=== PATIENT | female | born 1990 | race Caucasian/White ===

== ENCOUNTER 2016-07-01 14:32 | Emergency (ER) | payer SELFPAY ==
--- NOTE | 2016-07-01 14:45 | ER Document Report ---
ED Medical Screen (RME) - General Stated Complaint: POSSIBLE RASH Time seen by provider: 14:40 Mode of Arrival: Ambulatory Information source: Patient Notes: 26-year-old female presents to ED for rash to right breast. States she had a rash on her breasts last night and now it's on her right. States that the pain goes through her right breast to her back since 11:00 this morning. States she only took Benadryl with no help. States she took 2 Advil at around 10:00 and took Benadryl at the same time. I have greeted and performed a rapid initial assessment of this patient. A comprehensive ED assessment and evaluation of the patient, analysis of test results and completion of medical decision making process will be conducted by an additional ED providers. TRAVEL OUTSIDE OF THE [place] IN LAST 30 DAYS: No - Related Data Allergies/Adverse Reactions: morphine [Morphine] Allergy (Intermediate, Verified 05/27/16 12:06) severe vomiting aspirin [Aspirin] Allergy (Mild, Verified 05/27/16 12:06) severe headaches latex [Latex] Allergy (Unknown, Verified 05/27/16 12:06) Nausea promethazine HCl [From Phenergan] Allergy (Unknown, Verified 05/27/16 12:06) Iodinated Contrast Media - Oral and [IV Dye, Iodine Containing] Allergy ( Verified 05/27/16 12:06) Shellfish * [Shellfish] Allergy (Verified 05/27/16 12:06) Past Medical History - Social History Family history: CAD, DM, Hypertension, Malignancy Pulmonary Medical History: Reports: Hx Asthma - ON ALBUTEROL, Hx Bronchitis, Hx COPD Neurological Medical History: Reports: Hx Migraine Renal/ Medical History: Reports: Hx Ovarian Cysts GI Medical History: Reports: Hx Gastroesophageal Reflux Disease, Hx Hiatal Hernia, Hx Ulcer Musculoskeltal Medical History: Reports Hx Arthritis, Reports Hx Musculoskeletal Deformity, Reports Hx Musculoskeletal Trauma Psychiatric Medical History: Reports: Hx Anxiety, Hx Depression Traumatic Medical History: Reports: Hx Fractures Past Surgical History: Reports: Hx Section - 3, Hx Hysterectomy, Hx Oral Surgery - wisdom teeth, Hx Tubal Ligation - Immunizations Immunizations up to date: Yes Hx Diphtheria, Pertussis, Tetanus Vaccination: Yes
[2016-07-01] MEDS ORDERED: HYDROXYZINE HCL INJ 50 MG/1 ML VIAL IM ONE (17:06)
--- NOTE | 2016-07-01 17:12 | ER Document Report ---
ED General - General Chief Complaint: Rash Stated Complaint: POSSIBLE RASH Time seen by provider: 17:07 Mode of Arrival: Ambulatory Notes: This is a 26-year-old female with a history of asthma that presents today with bilateral breast rash. She states that at 2200 last night she noticed a small rash beginning on the left upper outer quadrant of her left breast with slight pruritus. However this morning she has noticed the rash has spread to her right breast to the lower quadrant breast around the areola. She also complains of a small rash between the index and middle finger of right hand on the dorsal aspect. Patient denies nipple discharge or breast swelling. Denies nausea vomiting fever or chills. Denies any ill contacts. TRAVEL OUTSIDE OF THE [place] IN LAST 30 DAYS: No - Related Data Allergies/Adverse Reactions: morphine [Morphine] Allergy (Intermediate, Verified 07/01/16 14:42) severe vomiting aspirin [Aspirin] Allergy (Mild, Verified 07/01/16 14:42) severe headaches latex [Latex] Allergy (Unknown, Verified 07/01/16 14:42) Nausea promethazine HCl [From Phenergan] Allergy (Unknown, Verified 07/01/16 14:42) Iodinated Contrast Media - Oral and [IV Dye, Iodine Containing] Allergy ( Verified 07/01/16 14:42) Shellfish * [Shellfish] Allergy (Verified 07/01/16 14:42) Past Medical History - General Information source: Patient - Social History Smoking Status: Current Every Day Smoker Chew tobacco use (# tins/day): No Frequency of alcohol use: None Drug Abuse: None Family History: Arthritis, DM, Hypertension, Malignancy, Thyroid Disfunction Patient has suicidal ideation: No Patient has homicidal ideation: No Pulmonary Medical History: Reports: Hx Asthma - ON ALBUTEROL, Hx Bronchitis, Hx COPD Neurological Medical History: Reports: Hx Migraine Renal/ Medical History: Reports: Hx Ovarian Cysts. Denies: Hx Peritoneal Dialysis GI Medical History: Reports: Hx Gastroesophageal Reflux Disease, Hx Hiatal Hernia, Hx Ulcer Musculoskeltal Medical History: Reports Hx Arthritis, Reports Hx Musculoskeletal Deformity, Reports Hx Musculoskeletal Trauma Psychiatric Medical History: Reports: Hx Anxiety, Hx Depression Traumatic Medical History: Reports: Hx Fractures Past Surgical History: Reports: Hx Section - 3, Hx Hysterectomy, Hx Oral Surgery - wisdom teeth, Hx Tubal Ligation - Immunizations Immunizations up to date: Yes Hx Diphtheria, Pertussis, Tetanus Vaccination: Yes Hx Pneumococcal Vaccination: 06/08/00 Review of Systems - Review of Systems Constitutional: denies: Chills, Fever EENT: No symptoms reported Cardiovascular: No symptoms reported Respiratory: No symptoms reported Gastrointestinal: No symptoms reported Genitourinary: No symptoms reported Musculoskeletal: No symptoms reported Skin: See HPI Hematologic/Lymphatic: No symptoms reported Neurological/Psychological: No symptoms reported Physical Exam - Vital signs Vitals: Temp Pulse Resp BP Pulse Ox 98.8 F 91 16 125/71 96 07/01/16 14:42 07/01/16 14:42 07/01/16 14:42 07/01/16 14:42 07/01/16 14:42 - General General appearance: Appears well, Alert - HEENT Head: Normocephalic, Atraumatic Eyes: Normal Conjunctiva: Normal - Respiratory Respiratory status: No respiratory distress Breath sounds: Normal. No: Rales, Rhonchi, Stridor, Wheezing - Cardiovascular Rhythm: Regular Heart sounds: Normal auscultation - Abdominal Inspection: Normal Distension: No distension Bowel sounds: Normal Tenderness: Nontender - Back Back: Normal. No: Wounds - Extremities General upper extremity: Normal inspection General lower extremity: Normal inspection - Neurological Cognition: Normal. No: Confused - Psychological Associated symptoms: Normal affect, Normal mood - Skin Skin Temperature: Warm Skin Moisture: Dry Skin Color: Erythema - Right lower inner quadrant and left lower outer quadrant of right breast has diffuse erythematous macule. Few erythematous papules noted. Left upper outer quadrant of the left breast shows diffuse erythematous macule with irregular border. Few erythematous papules noted. No drainage noted. Erythematous macule between index and middle finger of right hand on dorsal aspect. Measurement approximately a half centimeter by half a centimeter. No papules noted. Examination was chaperoned by PCT. Course - Re-evaluation Re-evalutation: 07/01/16 17:48 Examination was chaperoned by PCT. Patient was given multiple opportunities to ask questions. She was advised to follow-up with primary care physician. - Vital Signs Vital signs: Temp Pulse Resp BP Pulse Ox 98.7 F 67 16 117/94 H 100 07/01/16 17:55 07/01/16 17:55 07/01/16 17:55 07/01/16 17:55 07/01/16 17:55 Discharge - Discharge Clinical Impression: Rash Condition: Good Disposition: HOME, SELF-CARE Additional Instructions: Return to the emergency department if symptoms worsen such as nausea, fever, drainage, etc. follow-up with primary care physician as soon as possible Prescriptions: Famotidine [Pepcid 20 mg Tablet] 20 mg PO BID #12 tablet Hydroxyzine HCl [Atarax 10 mg Tablet] 10 mg PO TID PRN #30 tablet PRN Reason: Prednisone [Deltasone 10 mg Tablet] 10 mg PO ASDIR PRN #21 tablet PRN Reason: Referrals: [facility] [Provider Group] - Follow up as needed
[2016-07-01 17:58] VITALS: BP 117/94
== END 2016-07-01 17:00 | disposition home or self-care (01) ==
LOC: ER 14:32
DX: R21 Rash and other nonspecific skin eruption (principal); L29.8 Other pruritus; J44.9 Chronic obstructive pulmonary disease, unspecified; J45.909 Unspecified asthma, uncomplicated; F17.200 Nicotine dependence, unspecified, uncomplicated; Z88.5 Allergy status to narcotic agent; Z88.6 Allergy status to analgesic agent; Z91.040 Latex allergy status; Z91.041 Radiographic dye allergy status; Z91.013 Allergy to seafood; Z88.8 Allergy status to other drugs, medicaments and biological substances
CPT/HCPCS: 99282; 96372; J3490

== ENCOUNTER 2016-08-23 01:15 | Emergency (ER) | payer SELFPAY ==
[2016-08-23] MEDS ORDERED: HYDROXYZINE PAMOATE 50 MG CAPSULE PO ONE (01:39)
--- NOTE | 2016-08-23 01:39 | ER Document Report ---
ED General - General Time seen by provider: 02:05 Mode of Arrival: Ambulatory Information source: Patient, Friend TRAVEL OUTSIDE OF THE [place] IN LAST 30 DAYS: No - HPI Onset: Other - see HPI note <SONIDO HASKINS - Last Filed: 08/23/16 03:29> <FABIÁNROBIN - Last Filed: 08/23/16 04:58> - General Stated Complaint: DIFFICULTY BREATHING Notes: Patient is a 26 year old female presenting to the emergency department for respiratory distress. Patient has a history of asthma and believes she is having an asthma attack. Patient was dancing when she went outside to take a smoke. Patient had some pain and felt like she couldn't breath. Patient states that her pain started in her ribs and moved up into her chest. Patient states then she could not breath. Patient states her feet felt tingling and she states she cannot feel her legs below her knees. Patient is hyperventilating in the room and complains of the pain in her ribs and the difficulty breathing. Patient 's O2 saturation is 100% during the exam. Patient states she is not because she had a hysterectomy after her 6th child was born. Patient states this occurred about 1 hour prior to arrival. Patient states she has been drinking tonight and states she had "3 shots of Surjit, and 1/2 of a mixed drink. " Patient and friends deny the chance of anyone slipping anything into her drink. (SONIDO HASKINS) - Related Data Allergies/Adverse Reactions: morphine [Morphine] Allergy (Intermediate, Verified 07/01/16 14:42) severe vomiting aspirin [Aspirin] Allergy (Mild, Verified 07/01/16 14:42) severe headaches latex [Latex] Allergy (Unknown, Verified 07/01/16 14:42) Nausea promethazine HCl [From Phenergan] Allergy (Unknown, Verified 07/01/16 14:42) Iodinated Contrast Media - Oral and [IV Dye, Iodine Containing] Allergy ( Verified 07/01/16 14:42) Shellfish * [Shellfish] Allergy (Verified 07/01/16 14:42) Past Medical History - General Information source: Patient - Social History Smoking Status: Current Every Day Smoker Family History: Arthritis, DM, Hypertension, Malignancy, Thyroid Disfunction Pulmonary Medical History: Reports: Hx Asthma - ON ALBUTEROL, Hx Bronchitis, Hx COPD Neurological Medical History: Reports: Hx Migraine Renal/ Medical History: Reports: Hx Ovarian Cysts GI Medical History: Reports: Hx Gastroesophageal Reflux Disease, Hx Hiatal Hernia, Hx Ulcer Musculoskeltal Medical History: Reports Hx Arthritis, Reports Hx Musculoskeletal Deformity, Reports Hx Musculoskeletal Trauma Psychiatric Medical History: Reports: Hx Anxiety, Hx Depression Traumatic Medical History: Reports: Hx Fractures Past Surgical History: Reports: Hx Section - 3, Hx Hysterectomy, Hx Oral Surgery - wisdom teeth, Hx Tubal Ligation - Immunizations Immunizations up to date: Yes Hx Diphtheria, Pertussis, Tetanus Vaccination: Yes Hx Pneumococcal Vaccination: 06/08/00 <SONIDO HASKINS - Last Filed: 08/23/16 03:29> Review of Systems - Review of Systems Constitutional: No symptoms reported EENT: No symptoms reported Cardiovascular: See HPI Respiratory: See HPI Gastrointestinal: See HPI Genitourinary: No symptoms reported Female Genitourinary: No symptoms reported Musculoskeletal: No symptoms reported Skin: No symptoms reported Hematologic/Lymphatic: No symptoms reported Neurological/Psychological: No symptoms reported -: Yes All other systems reviewed and negative <SONIDO HASKINS - Last Filed: 08/23/16 03:29> Physical Exam - Vital signs Interpretation: Tachycardic - during exam - General General appearance: Alert, Other - patient is hyperventilating in the room In distress: Mild - HEENT Head: Normocephalic, Atraumatic Eyes: Normal Pupils: PERRL Mucous membranes: Moist - Respiratory Respiratory status: No respiratory distress, Other - hyperventilating Chest status: Nontender Breath sounds: Normal Chest palpation: Normal - Cardiovascular Rhythm: Regular Heart sounds: Normal auscultation Murmur: No - Abdominal Inspection: Normal Distension: No distension Bowel sounds: Normal Tenderness: Nontender Organomegaly: No organomegaly - Back Back: Normal, Nontender - Extremities General upper extremity: Normal inspection, Normal ROM, Normal strength General lower extremity: Normal inspection, Normal ROM, Normal strength - Neurological Neuro grossly intact: Yes Cognition: Normal Orientation: AAOx4 Son Coma Scale Eye Opening: Spontaneous [place] Coma Scale Verbal: Oriented Son Coma Scale Motor: Obeys Commands [place] Coma Scale Total: 15 Speech: Normal - Psychological Associated symptoms: Normal affect, Normal mood - Skin Skin Temperature: Warm Skin Moisture: Dry <SONIDO HASKINS - Last Filed: 08/23/16 03:29> <ROBIN LOCKWOOD - Last Filed: 08/23/16 04:58> - Vital signs Vitals: Pulse Ox 100 08/23/16 01:24 Course <SONIDO HASKINS - Last Filed: 08/23/16 03:29> - Laboratory Result Diagrams: 08/23/16 04:00 <ROBIN LOCKWOOD - Last Filed: 08/23/16 04:58> - Re-evaluation Re-evalutation: 08/23/16 04:54 Patient presents with episode of hyperventilation. She reports she has a history of asthma and was dancing and then also started having some chest tightness and pain. She said the pain is worse in the lower rib cage and it radiates up into her chest. She reports feeling very tight breathing. On arrival she is extremely tachypneic and crying with her partner at the bedside consoling her. She has clear breath sounds bilaterally. No wheezes are auscultated. Patient appears anxious and tearful. Initiated treatment with nonrebreather not have the option to try to get patient to balance her CO2. Patient was given a nebulized treatment with minimal improvement. Patient satting 100% throughout ED visit. She is not in respiratory distress. This is an episode of hyperventilation syndrome. She repeatedly requests for pain medication. Patient is well-known to this emergency department for pain related complaints. She has multiple allergies making it difficult to choose medication for her however Tylenol should be sufficient given she is clinically stable without any emergent issue requiring intervention. (ROBIN LOCKWOOD) - Vital Signs Vital signs: Temp Pulse Resp BP Pulse Ox 98.6 F 23 H 139/80 H 100 08/23/16 01:31 08/23/16 01:31 08/23/16 01:31 08/23/16 01:31 - Laboratory Laboratory results interpreted by me: 08/23/16 04:00 Seg Neutrophils % 91.0 H Lymphocytes % 7.2 L Monocytes % 1.2 L Absolute Neutrophils 8.3 H Discharge <SONIDO HASKINS - Last Filed: 08/23/16 03:29> <ROBIN LOCKWOOD - Last Filed: 08/23/16 04:58> - Discharge Clinical Impression: Hyperventilation syndrome Chest pain Qualifiers: Chest pain type: other chest pain Qualified Code(s): R07.89 - Other chest pain ; R07.8 - Other chest pain Condition: Stable Disposition: HOME, SELF-CARE Instructions: Asthma ([facility], [facility]) Additional Instructions: Follow-up the primary physician for ongoing evaluation and health needs. You can use Tylenol for chest discomfort. Use your albuterol inhaler as needed for wheezing and/or shortness of breath. Please review information below regarding hyperventilation. Return to emergency department for fevers, vomiting so not to keep down fluids, or other worsening or concerning symptoms. Chest Wall Pain Your chest pain has been diagnosed as coming from the chest wall. This is often caused by straining the muscles or joints in the chest during physical activity, direct trauma, coughing, or vigorous vomiting. Persons with arthritis are especially prone to this type of pain, due to inflammation of the cartilage joints near the breast bone. Occasionally, no cause can be found. Rest from strenuous physical activity. This kind of chest pain is usually made worse by movement of the chest. Depending on the symptoms, we may prescribe medicine for pain, muscle relaxation, and antiinflammatory effects. If the pain is new, and seems to be due to muscle strain, cold packs can help. Otherwise, apply gentle warmth to the painful area for 15 minutes every hour or two. You should contact the doctor immediately if things change. Further evaluation is needed if you develop a fever or cough, if the nature of the pain changes, or if you become short of breath. Hyperventilation You have had an episode of hyperventilation. The symptoms occur because rapid breathing changes the body's chemical balance. Hyperventilation causes dizziness, numbness (particularly of the hands and face), chest pain, muscle spasms, and anxiety. Once an episode begins, it's extremely difficult to control the "need" to breathe rapidly. Hyperventilation may be provoked by drug effects, nausea, or illness, but is often due to anxiety. If no specific cause for the problem was found, treatment for anxiety may be necessary. Once the chemical changes have occurred, the hyperventilation is likely to recur. If you feel the symptoms again, rebreathe your air with a paper bag for several minutes. Sometimes hyperventilation is a symptom of an underlying metabolic or lung problem. If new symptoms develop (such as productive cough, fever, or chest pain), or if you are unable to get relief with rebreathing your exhaled air, call the physician. Asthma Asthma is a condition where there is episodic tightness in the bronchial tubes. Allergies, infections, and polluted or cold air may be contributing factors. Emergency treatment of a severe asthma attack may include adrenaline shots , or bronchodilator aerosol. You may feel lightheaded, have a decreased exercise tolerance and a rapid pulse for an hour or two. Rest and get plenty of fluids. Home treatment of asthma requires bronchodilator drugs. These can be administered by injection, inhalation, or by mouth. Antibiotics and corticosteroids may be required for some patients. You should avoid chemical fumes, dusts, pollens, and exercising in very cold or dry air. If you smoke, stop!! If you develop a fever, increased wheezing, chest pain, or severe shortness of breath, you should contact the doctor immediately Scribe Documentation - Scribe Written by Greg:: Sonido Haskins 08/23/16 2:15 acting as scribe for :: [place] <SONIDO HASKINS - Last Filed: 08/23/16 03:29>
[2016-08-23] MEDS ORDERED: DEXAMETHASONE SOD PHOS INJ 10 MG/1 ML VIAL IM ONE (01:41)
[2016-08-23] MEDS ORDERED: IPRATROPIUM/ALBUTEROL 0.5-2.5 MG/3 ML AMPUL NEB ONE (02:00)
[2016-08-23] MEDS ORDERED: METOCLOPRAMIDE HCL INJ/PF 10 MG/2 ML SDV IV ONE (02:28)
[2016-08-23 04:10] LABS: ABSOLUTE LYMPHOCYTES (AUTO) 0.7 10^3/uL (0.5-4.7); ABSOLUTE MONOCYTES (AUTO) 0.1 10^3/uL (0.1-1.4); ABSOLUTE NEUT (AUTO) 8.3 10^3/uL (1.7-8.2); BASOPHILS % (AUTO) 0.5 % (0-2); EOSINOPHILS % (AUTO) 0.1 % (0-6); HEMATOCRIT 39.2 % (36.0-47.0); HEMOGLOBIN 13.7 g/dL (12.0-15.5); HGB HCT DIFFERENCE 1.9; LYMPHOCYTES % (AUTO) 7.2 % (13-45); MEAN CORPUSCULAR HEMOGLOBIN 30.8 pg (27.0-33.4); MEAN CORPUSCULAR HGB CONC 34.9 g/dL (32.0-36.0); MEAN CORPUSCULAR VOLUME 88 fl (80-97); MONOCYTES % (AUTO) 1.2 % (3-13); RED BLOOD COUNT 4.45 10^6/uL (3.72-5.28); RED CELL DISTRIBUTION WIDTH 13.2 % (11.5-14.0); WHITE BLOOD COUNT 9.1 10^3/uL (4.0-10.5)
[2016-08-23] MEDS ORDERED: DIPHENHYDRAMINE HCL 50 MG/ML VIAL IV ONE (04:17)
[2016-08-23 06:16] VITALS: BP 118/82
--- NOTE | 2016-08-23 16:11 | EKG REPORT ---
SEVERITY:- ABNORMAL ECG - SINUS TACHYCARDIA PROBABLE LEFT ATRIAL ABNORMALITY BORDERLINE RIGHT AXIS DEVIATION BORDERLINE T ABNORMALITIES, INFERIOR LEADS : Confirmed by: Sarah Morrison MD 23-Aug-2016 16:10:58
== END 2016-08-23 06:27 | disposition home or self-care (01) ==
LOC: ER 01:15
DX: F45.8 Other somatoform disorders (principal); R07.89 Other chest pain; F17.200 Nicotine dependence, unspecified, uncomplicated
CPT/HCPCS: 93005; 94640; 99284; 96372; 96374; 96375; 36415; 85025; 71010; 93010; J1200; J2765; J1100; J7620

== ENCOUNTER 2016-12-16 22:13 | Emergency (ER) | payer SELFPAY ==
[2016-12-16] MEDS ORDERED: NALOXONE HCL INJ 2 MG/2 ML DISP.SYRIN ONE (22:27)
[2016-12-16 22:31] LABS: ABSOLUTE BASOPHILS # (AUTO) 0.1 10^3/uL (0.0-0.2); ABSOLUTE EOSINOPHILS # (AUTO) 0.1 10^3/uL (0.0-0.6); ABSOLUTE LYMPHOCYTES (AUTO) 3.1 10^3/uL (0.5-4.7); ABSOLUTE MONOCYTES (AUTO) 0.7 10^3/uL (0.1-1.4); BASOPHILS % (AUTO) 0.9 % (0-2); EOSINOPHILS % (AUTO) 1.6 % (0-6); HEMATOCRIT 41.3 % (36.0-47.0); HEMOGLOBIN 13.7 g/dL (12.0-15.5); HGB HCT DIFFERENCE -0.2; LYMPHOCYTES % (AUTO) 38.7 % (13-45); MEAN CORPUSCULAR HEMOGLOBIN 29.8 pg (27.0-33.4); MEAN CORPUSCULAR HGB CONC 33.3 g/dL (32.0-36.0); MEAN CORPUSCULAR VOLUME 90 fl (80-97); MONOCYTES % (AUTO) 8.9 % (3-13); RED BLOOD COUNT 4.62 10^6/uL (3.72-5.28); RED CELL DISTRIBUTION WIDTH 13.4 % (11.5-14.0); SEGMENTED NEUTROPHILS % (AUTO) 49.9 % (42-78); WHITE BLOOD COUNT 8.1 10^3/uL (4.0-10.5)
[2016-12-16] MEDS ORDERED: NALOXONE HCL INJ 2 MG/2 ML DISP.SYRIN IV ONE ×2 (22:31)
[2016-12-16] MEDS ORDERED: NORMAL SALINE 500 ML with NALOXONE HCL 2 MG IV PRN ×2 (22:44)
[2016-12-16] MEDS ORDERED: NORMAL SALINE 1000 ML 1,000 ML IV ONE (22:45)
[2016-12-16 22:49] LABS: ALANINE AMINOTRANSFERASE 28 U/L (9-52); ALBUMIN 4.5 g/dL (3.5-5.0); ALCOHOL 158 mg/dL (NONE DETECTED); ALKALINE PHOSPHATASE 49 U/L (38-126); ANION GAP 13 (5-19); ASPARTATE AMINO TRANSFERASE 21 U/L (14-36); BILIRUBIN,DIRECT 0.2 mg/dL (0.0-0.4); BILIRUBIN,TOTAL 0.6 mg/dL (0.2-1.3); BLOOD UREA NITROGEN 5 mg/dL (7-20); CALCIUM 9.2 mg/dL (8.4-10.2); CARBON DIOXIDE 23 mmol/L (22-30); CHLORIDE 109 mmol/L (98-107); CREATINE KINASE 59 U/L (30-135); CREATININE RESULT 0.63 mg/dL (0.52-1.25); GLUCOSE 104 mg/dL (75-110); POTASSIUM 3.5 mmol/L (3.6-5.0); SODIUM 144.7 mmol/L (137-145); TOTAL PROTEIN 7.5 g/dL (6.3-8.2)
--- NOTE | 2016-12-16 22:50 | RADIOLOGY REPORT (SQ) ---
EXAM DESCRIPTION: CHEST SINGLE VIEW COMPLETED DATE/TIME: 12/16/2016 10:37 pm REASON FOR STUDY: hypoxia COMPARISON: August 2016 EXAM PARAMETERS: NUMBER OF VIEWS: One view. TECHNIQUE: Single frontal radiographic view of the chest acquired. RADIATION DOSE: NA LIMITATIONS: None. FINDINGS: LUNGS AND PLEURA: No opacities, masses or pneumothorax. No pleural effusion. MEDIASTINUM AND HILAR STRUCTURES: No masses. Contour normal. HEART AND VASCULAR STRUCTURES: Heart normal in size. Normal vasculature. BONES: No acute findings. HARDWARE: None in the chest. OTHER: No other significant finding. IMPRESSION: NO ACUTE RADIOGRAPHIC FINDING IN THE CHEST. TECHNICAL DOCUMENTATION: JOB ID: [id number]
[2016-12-17 00:12] LABS: URINE BARBITURATES SCREEN NEGATIVE; URINE METHADONE SCREEN NEGATIVE; URINE OPIATES LOW NEGATIVE; URINE PHENCYCLIDINE SCREEN NEGATIVE
[2016-12-17 00:38] LABS: ADD ON TESTING BLD IN LAB ACKNOWLEDGE
--- NOTE | 2016-12-17 00:50 | ER Document Report ---
ED Substance Abuse / Acc. OD - General Chief Complaint: Unresponsive Stated Complaint: UNRESPONSIVE Time Seen by Provider: 12/16/16 22:20 Notes: The patient is a 26-year-old female, past medical history asthma, presents after she was found unresponsive by her friend. The friend said that she was drinking, but does not think that she uses any drugs. Patient has been to the ER multiple times for pain related visits. Patient is taking shallow respirations, but will not respond to painful stimulation on arrival to the ED. TRAVEL OUTSIDE OF THE [place] IN LAST 30 DAYS: No - Related Data Allergies/Adverse Reactions: morphine [Morphine] Allergy (Intermediate, Verified 07/01/16 14:42) severe vomiting aspirin [Aspirin] Allergy (Mild, Verified 07/01/16 14:42) severe headaches latex [Latex] Allergy (Unknown, Verified 07/01/16 14:42) Nausea promethazine HCl [From Phenergan] Allergy (Unknown, Verified 07/01/16 14:42) Iodinated Contrast- Oral and IV Dye [IV Dye, Iodine Containing] Allergy ( Verified 07/01/16 14:42) Shellfish * [Shellfish] Allergy (Verified 07/01/16 14:42) Past Medical History - General Information source: Friend Cannot obtain history due to: Altered mental status - Social History Smoking Status: Unknown if Ever Smoked Family History: Arthritis, DM, Hypertension, Malignancy, Thyroid Disfunction Pulmonary Medical History: Reports: Hx Asthma - ON ALBUTEROL, Hx Bronchitis, Hx COPD Neurological Medical History: Reports: Hx Migraine Renal/ Medical History: Reports: Hx Ovarian Cysts. Denies: Hx Peritoneal Dialysis GI Medical History: Reports: Hx Gastroesophageal Reflux Disease, Hx Hiatal Hernia, Hx Ulcer Musculoskeltal Medical History: Reports Hx Arthritis, Reports Hx Musculoskeletal Deformity, Reports Hx Musculoskeletal Trauma Psychiatric Medical History: Reports: Hx Anxiety, Hx Depression Traumatic Medical History: Reports: Hx Fractures Past Surgical History: Reports: Hx Section - 3, Hx Hysterectomy, Hx Oral Surgery - wisdom teeth, Hx Tubal Ligation - Immunizations Immunizations up to date: Yes Hx Diphtheria, Pertussis, Tetanus Vaccination: Yes Hx Pneumococcal Vaccination: 06/08/00 Review of Systems - Review of Systems -: Yes ROS unobtainable due to patient's medical condition Physical Exam - Vital signs Vitals: Resp BP Pulse Ox 23 H 130/97 H 100 12/16/16 22:40 07/11/17 22:40 12/16/16 22:40 - Notes Notes: PHYSICAL EXAMINATION: GENERAL: Unresponsive to painful stimulation HEAD: Atraumatic, normocephalic. EYES: Pupils 3mm to 1mm reactive, sclera anicteric, conjunctiva are normal. ENT: nares patent, oropharynx clear without exudates. Moist mucous membranes. NECK: Normal range of motion, supple without lymphadenopathy LUNGS: Shallow respirations. Breath sounds clear to auscultation bilaterally and equal. No wheezes rales or rhonchi. HEART: Regular rate and rhythm without murmurs ABDOMEN: Soft, nontender, normoactive bowel sounds. No guarding, no rebound. No masses appreciated. EXTREMITIES: Normal range of motion, no pitting or edema. No cyanosis. NEUROLOGICAL: Moves all 4 extremities. SKIN: Warm, Dry, normal turgor, no rashes or lesions noted. Course - Re-evaluation Re-evalutation: On arrival to the emergency room, patient was protecting her airway, although she had shallow respirations. She was provided with 2 mg of Narcan and she woke up. She became sleepy and another 2 mg of Narcan were provided. She was started on a Narcan drip. Her UDS is negative for opioids or methadone, but she may be taking synthetic opioids such as fentanyl. Her alcohol level is 160. 12/17/16 02:01 Pt's Narcan drip discontinued for the past 2.5 hours because she is wide awake. Has not had any other episodes of somnolence. She said that she only drank alcohol tonight and she repeatedly said that she did not take any narcotics or benzos today. Looking through [place] [facility], she does not have any recent scripts. Patient said that she has not slept for the past week because she has an annoying cough from her asthma. She is requesting a nebulizer machine and Nebules because it helps her in the past. She will follow-up with her primary care physician for further evaluation and treatment. Patient has her friend and sister in the emergency room and will take her home. Given strict return precautions and they understand. 12/17/16 02:15 - Vital Signs Vital signs: Temp Pulse Resp BP Pulse Ox 29 H 140/101 H 93 12/17/16 00:55 12/17/16 00:55 12/17/16 00:55 - Laboratory Result Diagrams: 12/16/16 22:18 12/16/16 22:18 Laboratory results interpreted by me: 12/16/16 12/16/16 22:18 22:18 Potassium 3.5 L Chloride 109 H BUN 5 L Salicylates < 1.0 L Acetaminophen < 10 L Discharge - Discharge Clinical Impression: Alcohol intoxication Qualifiers: Complication of substance-induced condition: uncomplicated Qualified Code(s): F10.920 - Alcohol use, unspecified with intoxication, uncomplicated Altered mental status Qualifiers: Altered mental status type: unspecified Qualified Code(s): R41.82 - Altered mental status, unspecified Condition: Stable Disposition: HOME, SELF-CARE Additional Instructions: ACUTE ALCOHOL INTOXICATION and ALCOHOL ABUSE: Your evaluation revealed very high levels of alcohol. You can from drinking a large amount of alcohol rapidly! Further, there's the risk of falls , traffic accidents, and fights. A high portion (about 50 percent) of the serious injuries seen in hospital emergency rooms are caused by alcohol. Alcohol overdosage is usually due to an underlying emotional or psychiatric problem. You may benefit from counselling. If "binge" drinking is an ongoing problem for you, or if you drink ANY AMOUNT of alcohol EVERY day, you most likely have a tendency to alcoholism. You should avoid alcohol totally. We can refer you for treatment. Persons with alcohol problems are often also prone to other addictions -- you should discuss any use of medications or drugs with the doctor. You should be watched at home for the next several hours by someone who has not been drinking. Get extra fluids for the next 24 hours. Call the doctor if there is repeated vomiting, increasing headache, decreasing level of alertness, or any other worsening. FOR THE OBSERVER: Observe the patient for the next 24 hours and call or go to the hospital if any of the following are noted: prolonged or repeated vomiting, difficulty in arousing, convulsions (seizures or fits), fever, persistent cough, breathing that is too slow or too rapid, or confused or bizarre behavior. If a counselling visit has been arranged, make sure the patient attends. Call the physician or poison control if you have questions. FOLLOW-UP CARE: If you have been referred to a physician for follow-up care, call the physician s office for an appointment as you were instructed or within the next two days. If you experience worsening or a significant change in your symptoms, notify the physician immediately or return to the Emergency Department at any time for re-evaluation. Prescriptions: Albuterol Sulfate [Albuterol Sulfate 2.5mg/3 mL] 1 vial IH Q4 PRN #30 vial PRN Reason: Nebulizer [Nebulizer Machine] 1 each MC ASDIR PRN #1 kit PRN Reason: Forms: Smoking Cessation Education Referrals: [facility] [Outside] - Follow up as needed
[2016-12-17 00:57] VITALS: BP 140/101
--- NOTE | 2016-12-17 08:18 | EKG REPORT ---
SEVERITY:- OTHERWISE NORMAL ECG - SINUS RHYTHM BORDERLINE RIGHT AXIS DEVIATION : Confirmed by: Constantino Nicholas MD 17-Dec-2016 08:17:42
== END 2016-12-17 03:40 | disposition home or self-care (01) ==
LOC: ER 22:13
DX: F10.920 Alcohol use, unspecified with intoxication, uncomplicated (principal); R41.82 Altered mental status, unspecified; J45.909 Unspecified asthma, uncomplicated; Z90.710 Acquired absence of both cervix and uterus; Z88.6 Allergy status to analgesic agent; Z91.040 Latex allergy status; Z91.013 Allergy to seafood
CPT/HCPCS: 93005; 96376; 99285; 96365; 96366; 36415; 82962; 80307 ×4; 82550; 85025; 81025; 80053; 84484; 71010; 93010; J2310; J7030; J7040

== ENCOUNTER 2017-03-12 01:29 | Emergency (ER) | payer OTHER ==
[2017-03-12] MEDS ORDERED: CYCLOBENZAPRINE HCL 10 MG TABLET PO ONE (01:52)
[2017-03-12] MEDS ORDERED: PREDNISONE 20 MG TABLET PO ONE (01:52)
[2017-03-12] MEDS ORDERED: BENZONATATE 100 MG CAPSULE PO ONE (01:53)
--- NOTE | 2017-03-12 01:54 | ER Document Report ---
ED General - General Chief Complaint: Nonproductive Cough Stated Complaint: COUGH, DIFFICULTY BREATHING Time Seen by Provider: 03/12/17 01:44 Notes: Patient is a 26-year-old female comes emergency department for chief complaint of cough for about 3 days, cough is mainly nonproductive and painful, she states that she intermittently wheezes, she has a history of asthma, she continues to smoke. She uses an albuterol inhaler at home. She states she thinks she was having fevers but she is not sure. She also states that when she coughs she gets a sharp pain in her right side. She denies any symptoms otherwise. Past medical history of partial hysterectomy. TRAVEL OUTSIDE OF THE [place] IN LAST 30 DAYS: No - Related Data Allergies/Adverse Reactions: morphine [Morphine] Allergy (Intermediate, Verified 03/12/17 01:31) severe vomiting aspirin [Aspirin] Allergy (Mild, Verified 03/12/17 01:31) severe headaches latex [Latex] Allergy (Unknown, Verified 03/12/17 01:31) Nausea promethazine HCl [From Phenergan] Allergy (Unknown, Verified 03/12/17 01:31) Iodinated Contrast- Oral and IV Dye [IV Dye, Iodine Containing] Allergy ( Verified 03/12/17 01:31) Shellfish * [Shellfish] Allergy (Verified 03/12/17 01:31) Home Medications: Current Home Medications Albuterol Sulfate [Proair HFA] 1 - 2 puff IH Q4 PRN 03/12/17 [History] Past Medical History - General Information source: Patient - Social History Smoking Status: Never Smoker Smoking Education Provided: Yes - <3 min Frequency of alcohol use: None Drug Abuse: None Lives with: Family Family History: Arthritis, DM, Hypertension, Malignancy, Thyroid Disfunction Pulmonary Medical History: Reports: Hx Asthma - ON ALBUTEROL, Hx Bronchitis, Hx COPD Neurological Medical History: Reports: Hx Migraine Renal/ Medical History: Reports: Hx Ovarian Cysts. Denies: Hx Peritoneal Dialysis GI Medical History: Reports: Hx Gastroesophageal Reflux Disease, Hx Hiatal Hernia, Hx Ulcer Musculoskeltal Medical History: Reports Hx Arthritis, Reports Hx Musculoskeletal Deformity, Reports Hx Musculoskeletal Trauma Psychiatric Medical History: Reports: Hx Anxiety, Hx Depression Traumatic Medical History: Reports: Hx Fractures Past Surgical History: Reports: Hx Section - 3, Hx Hysterectomy, Hx Oral Surgery - wisdom teeth, Hx Tubal Ligation - Immunizations Immunizations up to date: Yes Hx Diphtheria, Pertussis, Tetanus Vaccination: Yes Hx Pneumococcal Vaccination: 06/08/00 Review of Systems - Review of Systems Constitutional: No symptoms reported EENT: No symptoms reported Cardiovascular: No symptoms reported Respiratory: See HPI Gastrointestinal: No symptoms reported Genitourinary: No symptoms reported Female Genitourinary: No symptoms reported Musculoskeletal: See HPI Skin: No symptoms reported Hematologic/Lymphatic: No symptoms reported Neurological/Psychological: No symptoms reported Physical Exam - Vital signs Vitals: Temp Pulse Resp BP Pulse Ox 98.1 F 100 17 144/86 H 100 03/12/17 01:34 03/12/17 01:34 03/12/17 01:34 03/12/17 01:34 03/12/17 01:34 Interpretation: Normal - General General appearance: Appears well, Alert In distress: None - HEENT Head: Normocephalic, Atraumatic Eyes: Normal Pupils: PERRL - Respiratory Respiratory status: No respiratory distress. No: Respiratory distress, Labored , Tachypnea Chest status: Nontender Breath sounds: Normal, Nonproductive cough - occasional. No: Decreased air movement, Productive cough, Wheezing Chest palpation: Normal - Cardiovascular Rhythm: Regular. No: Tachycardia Heart sounds: Normal auscultation, S1 appreciated, S2 appreciated Murmur: No - Abdominal Inspection: Normal Distension: No distension Bowel sounds: Normal Tenderness: Nontender. No: Tender, Guarding Organomegaly: No organomegaly - Back Back: Tender - There is mild tenderness over the right lumbar paraspinal muscles extending towards the size of the buttock, negative straight leg raise, normal distal neurovascular exam, normal strength, normal back exam otherwise.. No: Vertebra tenderness - Extremities General upper extremity: Normal inspection, Nontender, Normal color, Normal ROM , Normal temperature General lower extremity: Normal inspection, Nontender, Normal color, Normal ROM , Normal temperature, Normal weight bearing. No: Emmanuel's sign - Neurological Neuro grossly intact: Yes Cognition: Normal Orientation: AAOx4 [place] Coma Scale Eye Opening: Spontaneous Son Coma Scale Verbal: Oriented [place] Coma Scale Motor: Obeys Commands Son Coma Scale Total: 15 Speech: Normal Motor strength normal: LUE, RUE, LLE, RLE Sensory: Normal - Psychological Associated symptoms: Normal affect, Normal mood - Skin Skin Temperature: Warm Skin Moisture: Dry Skin Color: Normal Course - Re-evaluation Re-evalutation: On examination patient has clear lungs, no tachypnea, no hypoxia, occasional nonproductive cough. Patient has tenderness over the right lower paraspinal lumbar area extending around to the side, no signs of trauma, full range of motion of all extremities, no concerning deficits. Soft abdomen. Chest x-ray is unremarkable. Treating patient for cough, bronchitis, discussed smoking cessation, treating with Flexeril for her lower back. Discussed follow- up, discussed return precautions. Patient states understanding and agreement. - Vital Signs Vital signs: Temp Pulse Resp BP Pulse Ox 98.6 F 72 18 137/73 H 98 03/12/17 03:19 03/12/17 03:19 03/12/17 03:19 03/12/17 03:19 03/12/17 03:19 Discharge - Discharge Clinical Impression: Cough Lower back pain Qualifiers: Chronicity: acute Back pain laterality: right Sciatica presence: without sciatica Qualified Code(s): M54.5 - Low back pain Condition: Stable Disposition: HOME, SELF-CARE Additional Instructions: Your chest x-ray is normal. Your symptoms and examination are consistent with bronchitis, take the prednisone as prescribed, stop smoking, use your inhaler as needed. Use tessalon for cough if needed. Use the muscle relaxer along her right side and lower back, apply heat to the area. Follow-up with primary care. Return to the emergency department for any concerning or worsening symptoms including difficulty breathing. Prescriptions: Benzonatate [Tessalon [place] 100 mg Capsule] 100 mg PO Q8HP PRN #20 cap PRN Reason: Cyclobenzaprine HCl [Flexeril 5 mg Tablet] 1 - 2 tab PO TID PRN #15 tablet PRN Reason: Prednisone [Deltasone 10 mg Tablet] 10 mg PO ASDIR PRN #21 tablet PRN Reason: Forms: Smoking Cessation Education
--- NOTE | 2017-03-12 03:00 | RADIOLOGY REPORT (SQ) ---
EXAM DESCRIPTION: CHEST PA/LAT CLINICAL HISTORY: 26 years, Female, cough, shortness of breath, fevers COMPARISON: None. NUMBER OF VIEWS: 2 TECHNIQUE: Routine PA and lateral chest radiograph technique. LIMITATIONS: None. FINDINGS: Cardiac size and pulmonary vasculature are normal. Lungs are clear. No pleural effusions or pneumothorax. Bones are normal. IMPRESSION: Normal chest radiographs. 2011 [employer]- All Rights Reserved
[2017-03-12 03:24] VITALS: BP 137/73
== END 2017-03-12 03:24 | disposition home or self-care (01) ==
LOC: ER 01:29
DX: R05 Cough (principal); R06.00 Dyspnea, unspecified; Z88.6 Allergy status to analgesic agent; Z91.040 Latex allergy status; Z91.013 Allergy to seafood; Z90.710 Acquired absence of both cervix and uterus
CPT/HCPCS: 99283; 71020; J7512

== ENCOUNTER 2017-05-26 21:22 | Emergency (ER) | payer OTHER ==
[2017-05-26] MEDS ORDERED: DIAZEPAM INJ 10 MG/2 ML DISP.SYRIN IM ONE (22:55)
--- NOTE | 2017-05-26 22:57 | ER Document Report ---
HPI - HPI Patient complains to provider of: neck pain Pain Level: 5 Context: Patient is a 27 year old female that comes to the emergency department for chief complaint of pain to the right side of her neck. She states that it started a few days ago mild, she states that it has become significantly worse, she states now she cannot turn her head side to side, she states she moves it hurts with a sharp pain, she states it is keeping her awake. She denies impact injury, she denies fever or chills, she denies headache. She denies focal numbness or weakness. She smokes, she states she has been coughing a lot from bronchitis which she was treated from and has improved but is still has not completely resolved. LMP within the past month. - REPRODUCTIVE Reproductive: DENIES: : - DERM Skin Color: Normal, [place] Past Medical History - Social History Smoking Status: Current Every Day Smoker Frequency of alcohol use: Rare Drug Abuse: None Family History: Arthritis, DM, Hypertension, Malignancy, Thyroid Disfunction Patient has suicidal ideation: No Patient has homicidal ideation: No - Past Medical History Cardiac Medical History: Denies: Hx Atrial Fibrillation Pulmonary Medical History: Reports: Hx Asthma - ON ALBUTEROL, Hx Bronchitis, Hx COPD Neurological Medical History: Reports: Hx Migraine Renal/ Medical History: Reports: Hx Ovarian Cysts. Denies: Hx Peritoneal Dialysis GI Medical History: Reports: Hx Gastroesophageal Reflux Disease, Hx Hiatal Hernia, Hx Ulcer Musculoskeltal Medical History: Reports Hx Arthritis, Reports Hx Musculoskeletal Deformity, Reports Hx Musculoskeletal Trauma Psychiatric Medical History: Reports: Hx Anxiety, Hx Depression Traumatic Medical History: Reports: Hx Fractures Past Surgical History: Reports: Hx Section - 3, Hx Hysterectomy, Hx Oral Surgery - wisdom teeth, Hx Orthopedic Surgery - L shoulder, Hx Tubal Ligation - Immunizations Immunizations up to date: Yes Hx Diphtheria, Pertussis, Tetanus Vaccination: Yes Hx Pneumococcal Vaccination: 06/08/00 Vertical Provider Document - CONSTITUTIONAL General Appearance: WD/WN, Mild Distress - Patient moves stiffly and appears uncomfortable - INFECTION CONTROL TRAVEL OUTSIDE OF THE [place] IN LAST 30 DAYS: No - HEENT HEENT: Atraumatic, Normocephalic - NECK Neck: Other - No midline tenderness of the cervical spine, normal extension and flexion, very painful lateral range of motion, palpable muscle spasm and marked pain over the right paracervical and trapezius muscles. Slight tilt to the right. Normal strength and range of motion of upper and lower extremities, normal distal neurovascular exam. - RESPIRATORY Respiratory: Breath Sounds Normal, No Respiratory Distress O2 Sat by Pulse Oximetry: 99 - CARDIOVASCULAR Cardiovascular: Regular Rate, Regular Rhythm - GI/ABDOMEN Gastrointestinal: Abdomen Soft, Abdomen Non-Tender - BACK Back: Normal Inspection - MUSCULOSKELETAL/EXTREMETIES Musculoskeletal/Extremeties: MAEW, FROM, Non-Tender - NEURO Level of Consciousness: Awake, Alert, Appropriate Motor/Sensory: No Motor Deficit, No Sensory Deficit - DERM Integumentary: Warm, Dry, No Rash Course - Re-evaluation Re-evalutation: Patient moves her neck very stiffly, she is very tender right paracervical and trapezius muscles and clear muscle spasm on examination. She has a tiny tilt suggesting early torticollis. No nuchal rigidity, no fever, no headache, no evidence of spinal cord abnormality, no midline tenderness. Patient will be treated with diazepam for muscle spasm with torticollis, discussed treatment of this, follow-up, return precautions. Patient states understanding and agreement. - Vital Signs Vital signs: Temp Pulse Resp BP Pulse Ox 98.7 F 96 18 130/89 H 99 05/26/17 21:29 05/26/17 21:29 05/26/17 21:29 05/26/17 21:29 05/26/17 21:29 Discharge - Discharge Clinical Impression: Neck pain, Muscle spasm Condition: Stable Disposition: HOME, SELF-CARE Additional Instructions: Your examination is consistent with a muscular spasm of the trapezius muscle and developing torticollis. Apply heat to the area, take medications as prescribed, avoid lifting/twisting until symptoms resolve. Follow-up with primary care. Return to the emergency department for any concerning symptoms including fever, severe headache, or any other concerning symptoms. Prescriptions: Diazepam [Valium 5 mg Tablet] 5 mg PO TID #12 tablet
[2017-05-26 23:09] VITALS: BP 121/96
== END 2017-05-26 23:08 | disposition home or self-care (01) ==
LOC: ER 21:22
DX: M54.2 Cervicalgia (principal); M62.838 Other muscle spasm; F17.200 Nicotine dependence, unspecified, uncomplicated
CPT/HCPCS: 99283; 96372; J3360

== ENCOUNTER 2017-06-29 23:29 | Emergency (ER) | payer OTHER ==
[2017-06-30 00:19] VITALS: BP 111/73
== END 2017-06-30 01:35 | disposition left against medical advice (07) ==
LOC: ER 23:29
DX: Z53.21 Procedure and treatment not carried out due to patient leaving prior to being seen by health care provider (principal)

== ENCOUNTER 2017-08-13 11:26 | Emergency (ER) | payer OTHER ==
[2017-08-13 11:42] VITALS: BP 119/82
[2017-08-13] MEDS ORDERED: FENTANYL CITRATE INJ/PF 100 MCG/2 ML AMPUL IV ONE (11:59)
[2017-08-13] MEDS ORDERED: NORMAL SALINE 1000 ML 1,000 ML IV ONE (11:59)
[2017-08-13] MEDS ORDERED: ONDANSETRON HCL INJ/PF 4 MG/2 ML SDV IV ONE (12:00)
--- NOTE | 2017-08-13 12:01 | ER Document Report ---
ED Medical Screen (RME) - General Chief Complaint: Flank Pain Stated Complaint: FLANK PAIN Time Seen by Provider: 08/13/17 11:57 Notes: RME DISCLOSURE I have seen this patient as part of a Rapid Medical Evaluation and, if applicable, placed any initially appropriate orders. The patient will be seen and fully evaluated, including a full history and physical exam, by a provider ( in Main ED or Fast Track) when a room becomes available. 27-year-old female here with complaints of right flank and right lower quadrant abdominal pain that started 5 hours ago constant with associated nausea and vomiting but no fevers. She has not been able to urinate but feels like she has urine in her bladder however states that she is not able to get it out. She feels like "there might be a stone stuck in my urethra". She reports having a stone several years ago however, per chart review, CT scan at that time did not show any calculi. TRAVEL OUTSIDE OF THE [place] IN LAST 30 DAYS: No - Related Data Allergies/Adverse Reactions: morphine [Morphine] Allergy (Intermediate, Verified 08/13/17 11:29) severe vomiting aspirin [Aspirin] Allergy (Mild, Verified 08/13/17 11:29) severe headaches latex [Latex] Allergy (Unknown, Verified 08/13/17 11:29) Nausea promethazine HCl [From Phenergan] Allergy (Unknown, Verified 08/13/17 11:29) Iodinated Contrast- Oral and IV Dye [IV Dye, Iodine Containing] Allergy ( Verified 08/13/17 11:29) Shellfish * [Shellfish] Allergy (Verified 08/13/17 11:29) Past Medical History - Social History Chew tobacco use (# tins/day): No Frequency of alcohol use: None Drug Abuse: None Family history: CAD, DM, Hypertension, Malignancy - Past Medical History Cardiac Medical History: Denies: Hx Atrial Fibrillation Pulmonary Medical History: Reports: Hx Asthma - ON ALBUTEROL, Hx Bronchitis, Hx COPD Neurological Medical History: Reports: Hx Migraine Renal/ Medical History: Reports: Hx Ovarian Cysts. Denies: Hx Peritoneal Dialysis GI Medical History: Reports: Hx Gastroesophageal Reflux Disease, Hx Hiatal Hernia, Hx Ulcer Musculoskeltal Medical History: Reports Hx Arthritis, Reports Hx Musculoskeletal Deformity, Reports Hx Musculoskeletal Trauma Psychiatric Medical History: Reports: Hx Anxiety, Hx Depression Traumatic Medical History: Reports: Hx Fractures Past Surgical History: Reports: Hx Section - 3, Hx Hysterectomy, Hx Oral Surgery - wisdom teeth, Hx Orthopedic Surgery - L shoulder, Hx Tubal Ligation - Immunizations Immunizations up to date: Yes Hx Diphtheria, Pertussis, Tetanus Vaccination: Yes Physical Exam - Vital signs Vitals: Temp Pulse Resp BP Pulse Ox 98.9 F 85 16 119/82 98 08/13/17 11:40 08/13/17 11:40 08/13/17 11:40 08/13/17 11:40 08/13/17 11:40 Course - Vital Signs Vital signs: Temp Pulse Resp BP Pulse Ox 98.9 F 85 16 119/82 98 08/13/17 11:40 08/13/17 11:40 08/13/17 11:40 08/13/17 11:40 08/13/17 11:40
--- NOTE | 2017-08-13 12:27 | ER Document Report ---
ED General - General Chief Complaint: Flank Pain Stated Complaint: FLANK PAIN Time Seen by Provider: 08/13/17 11:57 TRAVEL OUTSIDE OF THE [place] IN LAST 30 DAYS: No - HPI Patient complains to provider of: Right flank pain Notes: Sharp right-sided flank pain with radiation to her right groin reminiscent of her kidney stones in the past. 10/10 sharp in nature nothing made it better or worse. Started approximately 4 hours prior to arrival here in the department. Denies nausea vomiting diarrhea fever chills or any other symptoms - Related Data Allergies/Adverse Reactions: morphine [Morphine] Allergy (Intermediate, Verified 08/13/17 11:29) severe vomiting aspirin [Aspirin] Allergy (Mild, Verified 08/13/17 11:29) severe headaches latex [Latex] Allergy (Unknown, Verified 08/13/17 11:29) Nausea promethazine HCl [From Phenergan] Allergy (Unknown, Verified 08/13/17 11:29) Iodinated Contrast- Oral and IV Dye [IV Dye, Iodine Containing] Allergy ( Verified 08/13/17 11:29) Shellfish * [Shellfish] Allergy (Verified 08/13/17 11:29) Past Medical History - Social History Smoking Status: Current Every Day Smoker Chew tobacco use (# tins/day): No Frequency of alcohol use: None Drug Abuse: None Family History: Arthritis, DM, Hypertension, Malignancy, Thyroid Disfunction Patient has suicidal ideation: No Patient has homicidal ideation: No - Past Medical History Cardiac Medical History: Denies: Hx Atrial Fibrillation Pulmonary Medical History: Reports: Hx Asthma - ON ALBUTEROL, Hx Bronchitis, Hx COPD Neurological Medical History: Reports: Hx Migraine Renal/ Medical History: Reports: Hx Ovarian Cysts. Denies: Hx Peritoneal Dialysis GI Medical History: Reports: Hx Gastroesophageal Reflux Disease, Hx Hiatal Hernia, Hx Ulcer Musculoskeltal Medical History: Reports Hx Arthritis, Reports Hx Musculoskeletal Deformity, Reports Hx Musculoskeletal Trauma Psychiatric Medical History: Reports: Hx Anxiety, Hx Depression Traumatic Medical History: Reports: Hx Fractures Past Surgical History: Reports: Hx Section - 3, Hx Hysterectomy, Hx Oral Surgery - wisdom teeth, Hx Orthopedic Surgery - L shoulder, Hx Tubal Ligation - Immunizations Immunizations up to date: Yes Hx Diphtheria, Pertussis, Tetanus Vaccination: Yes Hx Pneumococcal Vaccination: 06/08/00 Review of Systems - Review of Systems Notes: REVIEW OF SYSTEMS: CONSTITUTIONAL: -fevers, -chills EENT: -eye pain, -difficulty swallowing, -nasal congestion CARDIOVASCULAR: -chest pain, -syncope. RESPIRATORY: -cough, -SOB GASTROINTESTINAL: -abdominal pain, -nausea, -vomiting, -diarrhea GENITOURINARY: -dysuria, -hematuria MUSCULOSKELETAL: Positive back pain SKIN: -rash or skin lesions. HEMATOLOGIC: -easy bruising or bleeding. LYMPHATIC: -swollen, enlarged glands. NEUROLOGICAL: -altered mental status or loss of consciousness, -headache, - neurologic symptoms PSYCHIATRIC: -anxiety, -depression. ALL OTHER SYSTEMS REVIEWED AND NEGATIVE. Physical Exam - Vital signs Vitals: Temp Pulse Resp BP Pulse Ox 98.9 F 85 16 119/82 98 08/13/17 11:40 08/13/17 11:40 08/13/17 11:40 08/13/17 11:40 08/13/17 11:40 - Notes Notes: PHYSICAL EXAMINATION: GENERAL: Well-appearing, well-nourished and in no acute distress. HEAD: Atraumatic, normocephalic. EYES: Pupils equal round and reactive to light, extraocular movements intact, sclera anicteric, conjunctiva are normal. ENT: nares patent, oropharynx clear without exudates. Moist mucous membranes. NECK: Normal range of motion, supple without lymphadenopathy LUNGS: Breath sounds clear to auscultation bilaterally and equal. No wheezes rales or rhonchi. HEART: Regular rate and rhythm without murmurs ABDOMEN: Soft, nontender, normoactive bowel sounds. No guarding, no rebound. No masses appreciated. EXTREMITIES: Normal range of motion, no pitting or edema. No cyanosis. NEUROLOGICAL: Cranial nerves grossly intact. Normal speech, normal gait. Normal sensory and motor exams. PSYCH: Normal mood, normal affect. SKIN: Warm, Dry, normal turgor, no rashes or lesions noted. Course - Re-evaluation Re-evalutation: 08/13/17 14:10 Normal vital signs, stable within limits. Reassuring physical exam no abdominal findings negative CVA tenderness. Patient's urine shows no signs of infection, negative leukocytosis CAT scan negative for acute abdominal or pelvic abnormalities. Patient's pain well controlled with ketorolac, will discharge heart follow-up PCP. - Vital Signs Vital signs: Temp Pulse Resp BP Pulse Ox 98.9 F 85 16 119/82 98 08/13/17 11:40 08/13/17 11:40 08/13/17 11:40 08/13/17 11:40 08/13/17 11:40 - Laboratory Result Diagrams: 08/13/17 12:58 08/13/17 12:58 Laboratory results interpreted by me: 08/13/17 12:58 Calcium 10.3 H Discharge - Discharge Condition: Good Disposition: HOME, SELF-CARE Instructions: Abdominal Pain ([facility]) Additional Instructions: See your PCP Prescriptions: Tramadol HCl 50 mg PO TID #20 tablet Referrals: DEVONTE ACOSTA, [employer] [Primary Care Provider] - Follow up as needed
[2017-08-13 13:11] LABS: ABSOLUTE BASOPHILS # (AUTO) 0.1 10^3/uL (0.0-0.2); ABSOLUTE EOSINOPHILS # (AUTO) 0.2 10^3/uL (0.0-0.6); ABSOLUTE LYMPHOCYTES (AUTO) 2.2 10^3/uL (0.5-4.7); ABSOLUTE MONOCYTES (AUTO) 0.5 10^3/uL (0.1-1.4); ABSOLUTE NEUT (AUTO) 2.6 10^3/uL (1.7-8.2); BASOPHILS % (AUTO) 1.3 % (0-2); EOSINOPHILS % (AUTO) 3.9 % (0-6); HEMATOCRIT 42.1 % (36.0-47.0); HEMOGLOBIN 14.3 g/dL (12.0-15.5); LYMPHOCYTES % (AUTO) 39.6 % (13-45); MEAN CORPUSCULAR HEMOGLOBIN 30.3 pg (27.0-33.4); MEAN CORPUSCULAR HGB CONC 33.9 g/dL (32.0-36.0); MEAN CORPUSCULAR VOLUME 89 fl (80-97); MONOCYTES % (AUTO) 8.3 % (3-13); PLATELET COUNT 323 10^3/uL (150-450); RED BLOOD COUNT 4.72 10^6/uL (3.72-5.28); SEGMENTED NEUTROPHILS % (AUTO) 46.9 % (42-78); TOTAL CELLS COUNTED % (AUTO) 100 %; WHITE BLOOD COUNT 5.5 10^3/uL (4.0-10.5)
[2017-08-13 13:17] LABS: APPEARANCE,URINE SLIGHTLY-CLOUDY; BILIRUBIN,URINE NEGATIVE (NEGATIVE); COLOR,URINE STRAW; GLUCOSE, URINE NEGATIVE (NEGATIVE); KETONES,URINE NEGATIVE (NEGATIVE); LEUKOCYTE ESTERASE,URINE NEGATIVE (NEGATIVE); NITRITE,URINE NEGATIVE (NEGATIVE); PROTEIN,URINE NEGATIVE (NEGATIVE); URINE SPECIFIC GRAVITY 1.003; UROBILINOGEN,URINE NEGATIVE mg/dL (<2.0)
[2017-08-13 13:31] LABS: ANION GAP 9 (5-19); BLOOD UREA NITROGEN 8 mg/dL (7-20); CALCIUM 10.3 mg/dL (8.4-10.2); CARBON DIOXIDE 26 mmol/L (22-30); CHLORIDE 107 mmol/L (98-107); GLUCOSE 86 mg/dL (75-110); POTASSIUM 4.5 mmol/L (3.6-5.0); SODIUM 142.3 mmol/L (137-145)
--- NOTE | 2017-08-13 13:38 | RADIOLOGY REPORT (SQ) ---
EXAM DESCRIPTION: CT LTD RENAL STONE PROTOCOL ON COMPLETED DATE/TIME: 08/13/2017 1:11 pm REASON FOR STUDY: R flank and RLQ pain; eval stone COMPARISON: None. TECHNIQUE: CT scan of the abdomen and pelvis performed without intravenous or oral contrast. Images reviewed with lung, soft tissue, and bone windows. Reconstructed coronal and sagittal MPR images revi ewed. All images stored on PACS. All CT scanners at this facility use dose modulation, iterative reconstruction, and/or weight based d osing when appropriate to reduce radiation dose to as low as reasonably achievable (ALARA). [facility]: Dose Right [facility]: CareDose [facility]: Dose Right [facility]: Teradose 4D [facility]: [employer] RADIATION DOSE: CT Rad equipment meets quality standard of care and radiation dose reduction techniq ues were employed. CTDIvol: 4.9 mGy. DLP: 249 mGy-cm.mGy. LIMITATIONS: None. FINDINGS: LOWER CHEST: No significant findings. No nodules or infiltrates. NON-CONTRASTED LIVER, SPLEEN, ADRENALS: Evaluation limited by lack of IV contrast. No identified sign ificant masses. PANCREAS: No masses. No peripancreatic inflammatory changes. GALLBLADDER: No identified stones by CT criteria. No inflammatory changes to suggest cholecystitis. RIGHT KIDNEY AND URETER: No suspicious masses. Assessment limited by lack of IV contrast. No signif icant calcifications. No hydronephrosis or hydroureter. LEFT KIDNEY AND URETER: No suspicious masses. Assessment limited by lack of IV contrast. No signifi cant calcifications. No hydronephrosis or hydroureter. AORTA AND RETROPERITONEUM: No aneurysm. No retroperitoneal masses or adenopathy. BOWEL AND PERITONEAL CAVITY: No obvious masses or inflammatory changes. No free fluid. APPENDIX: Normal. PELVIS, BLADDER, AND ABDOMINAL WALL:No abnormal masses. No free fluid. Bladder normal. BONES: No significant findings. OTHER: No other significant finding. IMPRESSION: NO SIGNIFICANT OR ACUTE PROCESS IN THE ABDOMEN OR PELVIS. COMMENT: Quality ID # [id number]: Final reports with documentation of one or more dose reduction techniques (e.g., Automated exposure control, adjustment of the mA and/or kV according to patient size, use of iterative reconstruction technique) TECHNICAL DOCUMENTATION: JOB ID: [id number] 0000 [employer]- All Rights Reserved Reading location - IP/workstation name: [email or web address]
== END 2017-08-13 14:50 | disposition home or self-care (01) ==
LOC: ER 11:26
DX: R10.9 Unspecified abdominal pain (principal); F17.200 Nicotine dependence, unspecified, uncomplicated; J44.9 Chronic obstructive pulmonary disease, unspecified; Z87.442 Personal history of urinary calculi; Z87.19 Personal history of other diseases of the digestive system; Z90.710 Acquired absence of both cervix and uterus; Z88.5 Allergy status to narcotic agent; Z88.6 Allergy status to analgesic agent; Z91.040 Latex allergy status; Z91.013 Allergy to seafood; Z91.041 Radiographic dye allergy status
CPT/HCPCS: 99284; 96361; 96374; 96375; 36415; 85025; 81025; 80048; 81001; 76380; J3010; J2405; J7030

== ENCOUNTER 2017-10-09 00:35 | Emergency (ER) | payer OTHER ==
[2017-10-09] MEDS ORDERED: DIPHENHYDRAMINE HCL 50 MG/ML VIAL IV ONE (01:07)
[2017-10-09] MEDS ORDERED: METOCLOPRAMIDE HCL INJ/PF 10 MG/2 ML SDV IV ONE (01:08)
[2017-10-09] MEDS ORDERED: KETOROLAC TROMETHAMINE INJ/PF 30 MG/1 ML SDV IV ONE (01:08)
[2017-10-09] MEDS ORDERED: NORMAL SALINE 1000 ML 1,000 ML IV ONE (01:08)
--- NOTE | 2017-10-09 01:12 | ER Document Report ---
ED General - General Chief Complaint: Headache Stated Complaint: HEADACHE Time Seen by Provider: 10/09/17 01:03 Notes: Patient is a 27-year-old female with a history of migraine headaches who presents with complaint of a headache that she cannot get resolved with medications at home. Patient's has a history of migraines. She says started out like a typical migraine this morning. Is gradually worsened throughout the day. She says it has not responded to her home therapy and therefore she is come to ER. She has feels like a throbbing type pain in her head. She has had some nausea. She denies any focal weakness or numbness into extremities. She has some mild photophobia. She said mainly loud noises make the headache worse. She used her Relpax at home as well as took ibuprofen. Patient says that aspirin makes her headache worse. Other NSAIDs does work okay. She is allergic to Phenergan. She is unsure if she has had Reglan in the past. She denies recent fevers or infections. No trauma to her head. The only other complaint is on exam she has some pain into her left pinky finger upon squeezing the hands. Patient says that she has had pain issues up the ulnar aspect of the left hand and pain over the fifth metacarpal that she is had now for over a week. She denies any trauma or injuries to it. No redness or swelling. TRAVEL OUTSIDE OF THE [place] IN LAST 30 DAYS: No - Related Data Allergies/Adverse Reactions: morphine [Morphine] Allergy (Intermediate, Verified 08/13/17 11:29) severe vomiting aspirin [Aspirin] Allergy (Mild, Verified 08/13/17 11:29) severe headaches latex [Latex] Allergy (Unknown, Verified 08/13/17 11:29) Nausea promethazine HCl [From Phenergan] Allergy (Unknown, Verified 08/13/17 11:29) Iodinated Contrast- Oral and IV Dye [IV Dye, Iodine Containing] Allergy ( Verified 08/13/17 11:29) Shellfish * [Shellfish] Allergy (Verified 08/13/17 11:29) Past Medical History - Social History Smoking Status: Unknown if Ever Smoked Frequency of alcohol use: None Drug Abuse: None Family History: Arthritis, DM, Hypertension, Malignancy, Thyroid Disfunction - Past Medical History Cardiac Medical History: Denies: Hx Atrial Fibrillation Pulmonary Medical History: Reports: Hx Asthma - ON ALBUTEROL, Hx Bronchitis, Hx COPD Neurological Medical History: Reports: Hx Migraine Renal/ Medical History: Reports: Hx Ovarian Cysts. Denies: Hx Peritoneal Dialysis GI Medical History: Reports: Hx Gastroesophageal Reflux Disease, Hx Hiatal Hernia, Hx Ulcer Musculoskeltal Medical History: Reports Hx Arthritis, Reports Hx Musculoskeletal Deformity, Reports Hx Musculoskeletal Trauma Psychiatric Medical History: Reports: Hx Anxiety, Hx Depression Traumatic Medical History: Reports: Hx Fractures Past Surgical History: Reports: Hx Section - 3, Hx Hysterectomy, Hx Oral Surgery - wisdom teeth, Hx Orthopedic Surgery - L shoulder, Hx Tubal Ligation - Immunizations Immunizations up to date: Yes Hx Diphtheria, Pertussis, Tetanus Vaccination: Yes Hx Pneumococcal Vaccination: 06/08/00 Review of Systems - Review of Systems Notes: My Normal Review Basic REVIEW OF SYSTEMS: CONSTITUTIONAL : Denies fever, chills, or sweats. Denies recent illness. EENT: Denies eye, ear, throat, or mouth pain or symptoms. Denies nasal or sinus congestion. RESPIRATORY: Denies cough, cold, or chest congestion. Denies shortness of breath, difficulty breathing, or wheezing. GASTROINTESTINAL: Denies abdominal pain. Denies nausea, vomiting, or diarrhea. Denies constipation. Last BM: MUSCULOSKELETAL: Pain in left hand. SKIN: Denies rash or skin lesions. NEUROLOGICAL: Denies altered mental status or loss of consciousness. Has a headache. Denies weakness or paralysis or loss of use of either side. Denies problems with gait or speech. Denies sensory or motor loss. ALL OTHER SYSTEMS REVIEWED AND NEGATIVE. Physical Exam - Vital signs Vitals: Temp Pulse Resp BP Pulse Ox 97.9 F 88 18 127/97 H 100 10/09/17 00:36 10/09/17 00:36 10/09/17 00:36 10/09/17 00:36 10/09/17 00:36 - Notes Notes: General Appearance: Well nourished, alert, cooperative, no acute distress, moderate obvious discomfort. Vitals: reviewed, See vital signs table. Head: no swelling or tenderness to the head Eyes: PERRL, EOMI, Conjuctiva clear Mouth: No decreasd moisture Throat: No tonsillar inflammation, No airway obstruction, No lymphadenopathy Neck: Supple, no neck tenderness, No thyromegaly Lungs: No wheezing, No rales, No rhonci, No accessory muscle use, good air exchange bilaterally. Heart: Normal rate, Regular rythm, No murmur, no rub Abdomen: Normal BS, soft, No rigidity, No abdominal tenderness, No guarding, no rebound, no abdominal masses, no organomegaly Extremities: strength 5/5 in all extremities, good pulses in all extremities, no pain to palpation over left fifth metacarpal. There is no redness or swelling of the area. No bruising. No deformity. Skin: warm, dry, appropriate color, no rash Neuro: speech clear, oriented x 3, normal affect, responds appropriately to questions. Cranial nerves II through XII are intact. Distal sensation intact. Patient moves all extremities without difficulty. Course - Re-evaluation Re-evalutation: 10/09/17 03:18 Patient's headache is improving. She says she just feels little bit loopy from the Benadryl but otherwise feels well. 10/09/17 04:26 Since headache is completely relieved. She looks and feels well. I feel she is safe to be discharged home. Encouraged her follow-up closely with her primary care doctor. I did talked about her Relpax. She said it was not working. She also has not been taking until several hours after the onset of her headache. I informed her that this medication is designed to work at the initial onset of headache. She is now understanding of this and said she would take this at initial onset headache. We will prescribe her Reglan informed her that if her headache does not resolve with Robaxin she can take the Reglan in conjunction with dose of Benadryl and hopefully this will help her headache as a did here. Patient encouraged to return to ER if she has worsening headache, fevers, or feels unwell. Patient's headache is consistent with her typical migraines. Is not consistent with subarachnoid hemorrhage and that is gradual in onset and not sudden or maximal in onset. Patient encouraged to return to ER immediately if she has severe worsening headache, vomiting, or feels unwell. Dictation of this chart was performed using voice recognition software; therefore, there may be some unintended grammatical errors. 10/09/17 05:39 - Vital Signs Vital signs: Temp Pulse Resp BP Pulse Ox 97.9 F 88 18 105/72 98 10/09/17 00:36 10/09/17 00:36 10/09/17 00:36 10/09/17 05:00 10/09/17 05:01 Discharge - Discharge Clinical Impression: Headache Qualifiers: Headache type: unspecified Headache chronicity pattern: acute headache Intractability: not intractable Qualified Code(s): R51 - Headache Condition: Good Disposition: HOME, SELF-CARE Additional Instructions: HEADACHE: The physician does not feel that the headache you are experiencing has a serious underlying cause. Most headaches are due to emotional stress, with resultant muscle tension (tension headache). Occasionally, headaches are secondary to changes in the blood vessels of the scalp (vascular headache and migraine headache). Sometimes, a headache is the first symptom of another developing illness, such as a viral infection. You have no evidence of stroke, bleeding, meningitis, or other serious cause of your headache. The treatment of headaches varies with the severity and cause of the pain. Not all headaches need pain shots. In fact, there is evidence that using narcotics for headaches may make them worse in the long run. The physician will determine the therapy that's in your best interest. If you develop a fever, if the headache is different from any you've previously experienced, or if the headache progressively worsens, then call your physician at once or go to the emergency room. REGLAN (METOCLOPRAMIDE): Reglan has been prescribed. This medicine affects the stomach and intestines. It can be used to treat nausea and vomiting, to prevent reflux of stomach acid up into the esophagus, or to increase the contractions of the stomach and intestines. It is often prescribed for esophagitis, and for paralysis of the stomach in diabetics. Reglan can cause either mild restlessness or drowsiness. You should contact the doctor at once if you become extremely restless, anxious, or cannot sleep, or if you develop uncontrollable motions of the lips, tongue, or jaw. Do not take alcohol with this medicine. Do not drive or operate machinery until you have been taking this medicine long enough to know how it affects you. Call the doctor if you develop abdominal pains, lightheadedness, black stool, or blood in the stool or vomitus. FOLLOW-UP CARE: If you have been referred to a physician for follow-up care, call the physician s office for an appointment as you were instructed or within the next two days. If you experience worsening or a significant change in your symptoms, notify the physician immediately or return to the Emergency Department at any time for re-evaluation. Please return to the ER immediately if you develop worsening headaches, fevers, vomiting, or feel unwell. Please take your Relpax at the first sign of a migraine. If the Relpax does not work you can take a dose of the Reglan in conjunction of 5omg of Benadryl. Do not drive after taking the Benadryl as it will make you sleepy. Follow up with your doctor in 2-3 days. Prescriptions: Metoclopramide HCl [Reglan 10 mg Tablet] 1 tab PO ASDIR PRN #25 tablet PRN Reason:
[2017-10-09 05:06] VITALS: BP 105/72
== END 2017-10-09 05:18 | disposition home or self-care (01) ==
LOC: ER 00:35
DX: G43.909 Migraine, unspecified, not intractable, without status migrainosus (principal); R11.0 Nausea; H53.149 Visual discomfort, unspecified; M79.645 Pain in left finger(s); J44.9 Chronic obstructive pulmonary disease, unspecified; Z88.8 Allergy status to other drugs, medicaments and biological substances; Z88.5 Allergy status to narcotic agent; Z88.6 Allergy status to analgesic agent; Z91.041 Radiographic dye allergy status; Z91.013 Allergy to seafood
CPT/HCPCS: 99283; 96361; 96374; 96375; J1200; J1885; J2765; J7030

== ENCOUNTER 2017-11-17 13:13 | Emergency (ER) | payer OTHER ==
[2017-11-17 13:23] VITALS: BP 126/85
--- NOTE | 2017-11-17 13:52 | ER Document Report ---
HPI - HPI Pain Level: 4 Notes: Patient is a 24-year-old female who presents to the ED complaining of nasal congestion/discharge, dry nonproductive cough, fever, body ache 4 days. Patient states that she is still eating and drinking without difficulties, but does have a decreased p.o. intake. She is still urinating normally having normal bowel movements. Patient has been using some [id number] meds for symptoms. She denies any significant past medical history including cardiopulmonary history and immunocompromised conditions. Patient denies any IV drug use. Denies any current headache, neck pain, sore throat, chest pain, palpitations, syncope, shortness of breath, wheeze, dyspnea, abdominal pain, nausea/vomiting/diarrhea, urinary retention, dysuria, hematuria, or rash. - ROS Systems Reviewed and Negative: Yes All other systems reviewed and negative - NEURO Neurology: DENIES: Weakness - body aches - RESPIRATORY Respiratory: REPORTS: Coughing - REPRODUCTIVE Reproductive: DENIES: : Past Medical History - Social History Smoking Status: Current Every Day Smoker Chew tobacco use (# tins/day): No Frequency of alcohol use: Rare Drug Abuse: None Family History: Arthritis, DM, Hypertension, Malignancy, Thyroid Disfunction Patient has suicidal ideation: No Patient has homicidal ideation: No - Past Medical History Cardiac Medical History: Denies: Hx Atrial Fibrillation Pulmonary Medical History: Reports: Hx Asthma - ON ALBUTEROL, Hx Bronchitis, Hx COPD Neurological Medical History: Reports: Hx Migraine Renal/ Medical History: Reports: Hx Ovarian Cysts. Denies: Hx Peritoneal Dialysis GI Medical History: Reports: Hx Gastroesophageal Reflux Disease, Hx Hiatal Hernia, Hx Ulcer Musculoskeltal Medical History: Reports Hx Arthritis, Reports Hx Musculoskeletal Deformity, Reports Hx Musculoskeletal Trauma Psychiatric Medical History: Reports: Hx Anxiety, Hx Depression Traumatic Medical History: Reports: Hx Fractures Past Surgical History: Reports: Hx Section - 3, Hx Hysterectomy, Hx Oral Surgery - wisdom teeth, Hx Orthopedic Surgery - L shoulder, Hx Tubal Ligation - Immunizations Immunizations up to date: Yes Hx Diphtheria, Pertussis, Tetanus Vaccination: Yes Hx Pneumococcal Vaccination: 06/08/00 Vertical Provider Document - CONSTITUTIONAL Agree With Documented VS: No - HR 98 during exam Notes: PHYSICAL EXAMINATION: GENERAL: Well-appearing, well-nourished and in no acute distress. A&Ox4. Answers questions appropriately. Moves comfortably w/o notable distress HEAD: Atraumatic, normocephalic. EYES: Pupils equal round and reactive to light, extraocular movements intact, sclera anicteric, conjunctiva are normal. ENT: EAC clear b/l. TM's intact b/l without erythema, fluid, or perforation. Nares patent and with clear discharge. oropharynx no erythema without exudates. No tonsilar hypertrophy without erythema or exudate. No palatine shift. Uvula midline. No tongue protrusion. No drooling, hoarseness, or airway compromise. Moist mucous membranes. No sinus tenderness. NECK: Normal range of motion, supple without lymphadenopathy. No rigidity/ meningismus. LUNGS: Breath sounds clear to auscultation bilaterally and equal. No wheezes rales or rhonchi. No retractions HEART: Regular rate and rhythm without murmurs, rubs, gallops. ABDOMEN: Soft, nontender, nondistended abdomen. No guarding, no rebound. No masses appreciated. Normal bowel sounds present. No CVA tenderness bilaterally. No hepatosplenomegaly. NEUROLOGICAL: Normal speech, normal gait. Normal sensory, motor exams PSYCH: Normal mood, normal affect. SKIN: Warm, Dry, normal turgor, no rashes or lesions noted. - INFECTION CONTROL TRAVEL OUTSIDE OF THE [place] IN LAST 30 DAYS: No Course - Re-evaluation Re-evalutation: 11/17/17 13:50 Patient is an afebrile, well-hydrated, 27-year-old female who presents to the ED with acute URI, suspect viral. Vitals are stable. PE is otherwise unremarkable. No labs or imaging warranted at this time based on H&P. Patient has no significant cardiopulmonary or immunocompromised medical conditions. Patient's lungs are clear to auscultation bilaterally without tachycardia, hypoxia, or tachypnea. Patient is tolerating p.o. without any difficulties. Pt declined toradol/decadron. Low suspicion for any meningitis, sepsis, peritonsillar/pharyngeal abscess, respiratory compromise, severe dehydration, or other emergent systemic condition at this time. Patient is aware this condition can change from initial presentation and she needs to monitor symptoms closely. Steroid taper Rx. Conservative measures otherwise for symptoms. Recheck with your PCM in 3-5 days. Return to the ED with any worsening/concerning symptoms otherwise as reviewed in discharge. Patient is in agreement. - Vital Signs Vital signs: Temp Pulse Resp BP Pulse Ox 99.2 F 115 H 16 126/85 H 99 11/17/17 13:21 11/17/17 13:21 11/17/17 13:21 11/17/17 13:21 11/17/17 13:21 Discharge - Discharge Clinical Impression: Acute URI Condition: Stable Disposition: HOME, SELF-CARE Instructions: Upper Respiratory Illness ([facility]) Additional Instructions: Maintain adequate fluid intake Take meds as directed tylenol/ibuprofen as needed over the counter cold medication as needed for symptoms Humidified air may help Wash your hands regularly Wear a mask when coughing F/u: with your PCM in 3-5 days for a recheck Return to the ED with any fever, worsening pain, chest pain, palpitations, syncope, worsening JOE, neck pain/stiffness, shortness of breath, wheezing, drooling, trouble swallowing/breathing, abdominal pain, n/v/d, rash, or worsening/concerning symptoms otherwise. Prescriptions: Benzonatate [Tessalon Perle 100 mg Capsule] 100 mg PO Q8HP PRN #15 cap PRN Reason: Prednisone 20 mg PO ASDIR #18 tablet Forms: Elevated Blood Pressure, Smoking Cessation Education Referrals: [facility] [Provider Group] - Follow up as needed [facility] [Provider Group] - Follow up as needed
== END 2017-11-17 14:07 | disposition home or self-care (01) ==
LOC: ER 13:13
DX: J06.9 Acute upper respiratory infection, unspecified (principal); R09.81 Nasal congestion; R50.9 Fever, unspecified; M79.1 Myalgia; F17.200 Nicotine dependence, unspecified, uncomplicated; Z90.710 Acquired absence of both cervix and uterus
CPT/HCPCS: 99283

== ENCOUNTER 2017-12-23 00:41 | Emergency (ER) | payer OTHER ==
--- NOTE | 2017-12-23 01:38 | ER Document Report ---
HPI - HPI Pain Level: 4 Notes: Patient is a 27-year-old female no significant past medical history who presents to the ED complaining of left knee pain status post twist injury prior to arrival. Patient states that she was dancing at her job a few hours ago when she stepped into an uneven surface on the floor and twisted her knee. Patient states that she had immediate pain and swelling noted. Pain does not radiate. Patient states that she has trouble with flexion at her knee because of the pain. Denies any surgical history to the knee. Patient states that she did take 2 Advil prior to arrival. Denies any headache, fever, neck pain, URI, sore throat, chest pain, palpitations, syncope, cough, shortness of breath, wheeze, dyspnea, abdominal pain, nausea/vomiting/diarrhea, urinary retention, dysuria, hematuria, back pain, loss of control of bowel or bladder, numbness/ tingling, saddle anesthesia, muscle paralysis/weakness, or rash. - ROS Systems Reviewed and Negative: Yes All other systems reviewed and negative - CONSTITUTIONAL Constitutional: DENIES: Fever, Chills - EENT EENT: DENIES: Sore Throat, Ear Pain, Eye problems - NEURO Neurology: DENIES: Headache, Weakness, Vision blurred, Dizzinesss / Vertigo - CARDIOVASCULAR Cardiovascular: DENIES: Chest pain - RESPIRATORY Respiratory: DENIES: Trouble Breathing, Coughing - GASTROINTESTINAL Gastrointestinal: DENIES: Abdominal Pain, Black / Bloody Stools - URINARY Urinary: DENIES: Dysuria, Urgency, Frequency - REPRODUCTIVE Reproductive: DENIES: : - MUSCULOSKELETAL Musculoskeletal: REPORTS: Extremity pain - knee Past Medical History - Social History Smoking Status: Unknown if Ever Smoked Family History: Arthritis, DM, Hypertension, Malignancy, Thyroid Disfunction Patient has suicidal ideation: No Patient has homicidal ideation: No - Past Medical History Cardiac Medical History: Denies: Hx Atrial Fibrillation Pulmonary Medical History: Reports: Hx Asthma - ON ALBUTEROL, Hx Bronchitis, Hx COPD Neurological Medical History: Reports: Hx Migraine Renal/ Medical History: Reports: Hx Ovarian Cysts. Denies: Hx Peritoneal Dialysis GI Medical History: Reports: Hx Gastroesophageal Reflux Disease, Hx Hiatal Hernia, Hx Ulcer Musculoskeletal Medical History: Reports Hx Arthritis, Reports Hx Musculoskeletal Deformity, Reports Hx Musculoskeletal Trauma Psychiatric Medical History: Reports: Hx Anxiety, Hx Depression Traumatic Medical History: Reports: Hx Fractures Past Surgical History: Reports: Hx Section - 3, Hx Hysterectomy, Hx Oral Surgery - wisdom teeth, Hx Orthopedic Surgery - L shoulder, Hx Tubal Ligation - Immunizations Immunizations up to date: Yes Hx Diphtheria, Pertussis, Tetanus Vaccination: Yes Hx Pneumococcal Vaccination: 06/08/00 Vertical Provider Document - CONSTITUTIONAL Agree With Documented VS: Yes Notes: PHYSICAL EXAMINATION: GENERAL: Well-appearing, well-nourished and in no acute distress. LUNGS: Breath sounds clear to auscultation bilaterally and equal. No wheezes rales or rhonchi. HEART: Regular rate and rhythm without murmurs, rubs, gallops. Musculoskeletal: Lt knee: + mild swelling noted w/o obvious ecchymosis, effusion, or deformity. LROM to passive/active and flexion. + medial joint line tenderness and anterior knee tenderness to palpation. Strength 4+/5 due to pain. N/V intact distal. Unable to adequately assess ligaments and cartilage due to patient resistance. Patellar grind negative. No calf tenderness. Extremities: No cyanosis, clubbing, or edema b/l. Peripheral pulses 2+. Capillary refill less than 3 seconds. Emmanuel neg b/l. NEUROLOGICAL: Normal speech, limping gait. Normal sensory, motor exams PSYCH: Normal mood, normal affect. SKIN: Warm, Dry, normal turgor, no rashes or lesions noted. - INFECTION CONTROL TRAVEL OUTSIDE OF THE [place] IN LAST 30 DAYS: No Course - Re-evaluation Re-evalutation: 12/23/17 02:05 Patient is an afebrile, well-hydrated, 27-year-old female who presents to the ED with left knee pain which I suspect to be a sprain versus strain. Vitals are acceptable without any significant tachycardia, tachypnea, or hypoxia. PE is otherwise unremarkable for any neurovascular compromise, obvious tendon/ ligament rupture, obvious fracture/dislocation, septic joint. X-ray is negative. Knee immobilizer and crutches provided. Patient declined any Tylenol. Ice given. Patient is nontoxic-appearing. Conservative measures otherwise for symptoms. Recheck with your PCM in 3-5 days. Call ortho tomr to schedule an appointment for further eval and management. Return to the ED with any worsening/concerning symptoms otherwise as reviewed in discharge. Patient is in agreement. - Vital Signs Vital signs: Temp Pulse Resp BP Pulse Ox 98.6 F 88 15 117/88 H 100 12/23/17 01:14 12/23/17 01:14 12/23/17 01:14 12/23/17 01:14 12/23/17 01:14 Discharge - Discharge Clinical Impression: Left knee pain Qualifiers: Chronicity: acute Qualified Code(s): M25.562 - Pain in left knee Condition: Stable Disposition: HOME, SELF-CARE Instructions: Use of Crutches ([facility]), Ice & Elevation ([facility]), Knee Immobilizing Splint ([facility]), Sprained Knee ([facility]) Additional Instructions: Rest, Ice, Compression, Elevation Use crutches/splint as directed Tylenol/ibuprofen as needed Light stretches daily Strength exercises as able Moist heat and massage may help F/u with your PCP in 3-5 days for a recheck Call orthopedics tomorrow to schedule an appointment for further evaluation and management Return to the ED with any worsening symptoms and/or development of fever, headache, chest pain, palpitations, syncope, shortness of breath, trouble breathing, abdominal pain, n/v/d, muscle weakness/paralysis, numbness/tingling, swelling, redness, or other worsening symptoms that are concerning to you. Prescriptions: Naproxen 500 mg PO BID PRN #30 tablet PRN Reason: Forms: Elevated Blood Pressure, Return to Work, Parent Work Note Referrals: [facility] [Provider Group] - Follow up in 3-5 days
--- NOTE | 2017-12-23 01:56 | RADIOLOGY REPORT (SQ) ---
EXAM DESCRIPTION: XR KNEE 4 OR MORE VIEWS COMPLETED DATE/TME: 12/23/2017 01:32 CLINICAL HISTORY: 27 years, Female, left knee pain s/p twist injury COMPARISON: None. NUMBER OF VIEWS: Four TECHNIQUE: Four views of the left knee LIMITATIONS: None. FINDINGS: No acute fracture or dislocation. The joint spaces are preserved. There is no significant joint effusion IMPRESSION: No acute fracture or dislocation 2010 [employer]- All Rights Reserved
[2017-12-23 02:17] VITALS: BP 131/83
== END 2017-12-23 02:22 | disposition home or self-care (01) ==
LOC: ER 00:41
DX: M25.562 Pain in left knee (principal); Y99.0 Civilian activity done for income or pay; Z90.710 Acquired absence of both cervix and uterus
CPT/HCPCS: 99283; 73564; L1830

== ENCOUNTER 2017-12-24 05:34 | Emergency (ER) | payer OTHER ==
[2017-12-24] MEDS ORDERED: LORAZEPAM 1 MG TABLET PO ONE (07:12)
[2017-12-24] MEDS ORDERED: METOCLOPRAMIDE HCL INJ/PF 10 MG/2 ML SDV IV ONE (07:24)
[2017-12-24] MEDS ORDERED: DIPHENHYDRAMINE HCL 50 MG/ML VIAL IV ONE (07:24)
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
[2017-12-24 11:16] LABS: APPEARANCE,URINE CLEAR; BILIRUBIN,URINE NEGATIVE (NEGATIVE); COLOR,URINE YELLOW; GLUCOSE, URINE NEGATIVE (NEGATIVE); KETONES,URINE NEGATIVE (NEGATIVE); LEUKOCYTE ESTERASE,URINE NEGATIVE (NEGATIVE); NITRITE,URINE NEGATIVE (NEGATIVE); PROTEIN,URINE NEGATIVE (NEGATIVE); URINE SPECIFIC GRAVITY 1.006; UROBILINOGEN,URINE NEGATIVE mg/dL (<2.0)
[2017-12-24] MEDS ORDERED: CEFTRIAXONE INJ 250 MG VIAL IM ONE (11:26)
[2017-12-24] MEDS ORDERED: AZITHROMYCIN 250 MG TABLET PO ONE (11:26)
[2017-12-24] MEDS ORDERED: LIDOCAINE 1% INJ-PF (10 MG/ML) 30 ML SDV INJ ONE (11:26)
[2017-12-24] MEDS ORDERED: LEVONORGESTREL 1.5 MG TABLET (1 TAB/ER-USE) PO ONE (11:38)
[2017-12-24 13:03] LABS: ABSOLUTE BASOPHILS # (AUTO) 0.1 10^3/uL (0.0-0.2); ABSOLUTE EOSINOPHILS # (AUTO) 0.2 10^3/uL (0.0-0.6); ABSOLUTE LYMPHOCYTES (AUTO) 2.2 10^3/uL (0.5-4.7); ABSOLUTE MONOCYTES (AUTO) 0.6 10^3/uL (0.1-1.4); ABSOLUTE NEUT (AUTO) 3.5 10^3/uL (1.7-8.2); BASOPHILS % (AUTO) 0.8 % (0-2); EOSINOPHILS % (AUTO) 3.3 % (0-6); HEMATOCRIT 35.4 % (36.0-47.0); HEMOGLOBIN 12.3 g/dL (12.0-15.5); MEAN CORPUSCULAR HEMOGLOBIN 30.6 pg (27.0-33.4); MEAN CORPUSCULAR HGB CONC 34.8 g/dL (32.0-36.0); MEAN CORPUSCULAR VOLUME 88 fl (80-97); MONOCYTES % (AUTO) 9.6 % (3-13); PLATELET COUNT 251 10^3/uL (150-450); RED BLOOD COUNT 4.02 10^6/uL (3.72-5.28); RED CELL DISTRIBUTION WIDTH 13.4 % (11.5-14.0); SEGMENTED NEUTROPHILS % (AUTO) 52.3 % (42-78); TOTAL CELLS COUNTED % (AUTO) 100 %; WHITE BLOOD COUNT 6.6 10^3/uL (4.0-10.5)
[2017-12-24 13:27] LABS: ALANINE AMINOTRANSFERASE 17 U/L (9-52); ALBUMIN 3.5 g/dL (3.5-5.0); ALKALINE PHOSPHATASE 36 U/L (38-126); ANION GAP 10 (5-19); ASPARTATE AMINO TRANSFERASE 18 U/L (14-36); BILIRUBIN,DIRECT 0.2 mg/dL (0.0-0.4); BILIRUBIN,TOTAL 0.2 mg/dL (0.2-1.3); BLOOD UREA NITROGEN 5 mg/dL (7-20); CALCIUM 8.9 mg/dL (8.4-10.2); CARBON DIOXIDE 25 mmol/L (22-30); CHLORIDE 110 mmol/L (98-107); GLUCOSE 75 mg/dL (75-110); SODIUM 145.3 mmol/L (137-145)
[2017-12-24 14:39] LABS: T.VAGINALIS (WET MOUNT) NO TRICHOMONAS SEEN; WBCS (WET MOUNT) NO WBCS SEEN; YEAST (WET MOUNT) NO YEAST SEEN
[2017-12-24 16:21] LABS: CHLAM PCR NOT DETECTED (NOT DETECT); GON PCR NOT DETECTED (NOT DETECT)
[2017-12-24 20:27] VITALS: BP 125/73
[2017-12-25 06:41] LABS: HEPATITIS A AB IGM Negative (Negative); HEPATITIS B CORE AB IGM Negative (Negative); HEPATITS B SURFACE ANTIGEN Negative (Negative)
[2017-12-25 09:19] LABS: HEPATITIS C VIRUS ANTIBODY <0.1 s/co ratio (0.0-0.9)
== END 2017-12-24 13:15 | disposition home or self-care (01) ==
LOC: ER 05:34
DX: T74.21XA Adult sexual abuse, confirmed, initial encounter (principal); S30.1XXA Contusion of abdominal wall, initial encounter; S20.221A Contusion of right back wall of thorax, initial encounter; Y07.59 Other non-family member, perpetrator of maltreatment and neglect; G43.909 Migraine, unspecified, not intractable, without status migrainosus; F17.200 Nicotine dependence, unspecified, uncomplicated; J44.9 Chronic obstructive pulmonary disease, unspecified; Z88.5 Allergy status to narcotic agent; Z88.6 Allergy status to analgesic agent; Z88.8 Allergy status to other drugs, medicaments and biological substances; Z91.040 Latex allergy status; Z91.041 Radiographic dye allergy status; Z91.013 Allergy to seafood; Z90.710 Acquired absence of both cervix and uterus
CPT/HCPCS: 99285; 96372; 36415; 87210; 85025; 81025; 86592; 80053; 81001; 86701; 87491; 87591; 80074; A9270; J1200; J3490; J2765; J0696

== ENCOUNTER 2018-06-11 13:09 | Emergency (ER) | payer SELFPAY ==
[2018-06-11 13:39] VITALS: BP 123/79
[2018-06-11] MEDS ORDERED: LORATADINE 10 MG TABLET PO ONE (15:11)
[2018-06-11] MEDS ORDERED: PSEUDOEPHEDRINE HCL 30 MG TABLET PO ONE (15:11)
[2018-06-11] MEDS ORDERED: GUAIFENESIN 600 MG TABLET.SA PO ONE (15:12)
[2018-06-11] MEDS ORDERED: IBUPROFEN 600 MG TABLET PO ONE (15:12)
[2018-06-11] MEDS ORDERED: LIDOCAINE 5% (700 MG) TRANSDERMAL ADH..PATCH TP ONE (15:12)
[2018-06-11] MEDS ORDERED: DEXAMETHASONE 4 MG TABLET PO ONE (15:13)
--- NOTE | 2018-06-11 15:18 | ER Document Report ---
ED General - General Chief Complaint: Chest Congestion Stated Complaint: DIFFICULTY BREATHING Time Seen by Provider: 06/11/18 14:59 Mode of Arrival: Ambulatory Information source: Patient Notes: [id number] presents to ED for cough cold congestion runny nose that started last night. She states she also has extreme pain in her lower back that goes down her left leg. She has a history of chronic low back pain with sciatic pain. This is not a new pain this is just an aggravation of an old pain. Patient is alert and oriented respirations regular and unlabored lungs clear to auscultation. TRAVEL OUTSIDE OF THE [place] IN LAST 30 DAYS: No - HPI Onset: Yesterday - Cold started yesterday back pain is been chronic for a while Onset/Duration: Intermittent Quality of pain: Burning, Sharp, Throbbing Severity: Moderate Pain Level: 3 Associated symptoms: Body/muscle aches, Chills, Nonproductive cough, Headache, Rhinnorhea, Sinus pain/drainage, Sore throat, Other - Chronic back pain with sciatica going down the left Exacerbated by: Movement, Walking, Coughing Relieved by: Denies Similar symptoms previously: Yes - Related Data Allergies/Adverse Reactions: morphine [Morphine] Allergy (Intermediate, Verified 06/11/18 13:19) severe vomiting aspirin [Aspirin] Allergy (Mild, Verified 06/11/18 13:19) severe headaches latex [Latex] Allergy (Unknown, Verified 06/11/18 13:19) Nausea promethazine HCl [From Phenergan] Allergy (Unknown, Verified 06/11/18 13:19) Iodinated Contrast- Oral and IV Dye [IV Dye, Iodine Containing] Allergy (Verified 06/11/18 13:19) Shellfish * [Shellfish] Allergy (Verified 06/11/18 13:19) Past Medical History - General Information source: Patient - Social History Smoking Status: Current Every Day Smoker Cigarette use (# per day): Yes - Half pack a day Chew tobacco use (# tins/day): No Smoking Education Provided: Yes - 4 minutes Frequency of alcohol use: Rare Drug Abuse: None Lives with: Family Family History: Arthritis, DM, Hypertension, Malignancy, Thyroid Disfunction Patient has suicidal ideation: No Patient has homicidal ideation: No - Past Medical History Cardiac Medical History: Reports: None Pulmonary Medical History: Reports: Hx Asthma - ON ALBUTEROL, Hx Bronchitis, Hx Pneumonia EENT Medical History: Reports: None Neurological Medical History: Reports: Hx Migraine Endocrine Medical History: Reports: None Renal/ Medical History: Reports: Hx Ovarian Cysts Malignancy Medical History: Reports: None GI Medical History: Reports: Hx Gastroesophageal Reflux Disease, Hx Hiatal Jerry ia, Hx Ulcer Musculoskeletal Medical History: Reports Hx Arthritis, Reports Hx Musculoskeletal Deformity, Reports Hx Musculoskeletal Trauma Skin Medical History: Reports None Psychiatric Medical History: Reports: Hx Anxiety, Hx Post Traumatic Stress Disorder - Clavicle ankle ribs Traumatic Medical History: Reports: Hx Fractures Past Surgical History: Reports: Hx Section - 3, Hx Hysterectomy, Hx Oral Surgery - wisdom teeth molars, Hx Orthopedic Surgery - L shoulder, Hx Tubal Ligation - Immunizations Immunizations up to date: Yes Hx Diphtheria, Pertussis, Tetanus Vaccination: Yes Hx Pneumococcal Vaccination: 06/08/00 Review of Systems - Review of Systems Constitutional: No symptoms reported EENT: Nose congestion, Nose discharge, Sinus pressure, Sinus discharge Cardiovascular: No symptoms reported Respiratory: Cough, Short of breath Gastrointestinal: No symptoms reported Genitourinary: No symptoms reported Female Genitourinary: No symptoms reported Musculoskeletal: Back pain Skin: No symptoms reported Hematologic/Lymphatic: No symptoms reported Neurological/Psychological: No symptoms reported -: Yes All other systems reviewed and negative Physical Exam - Vital signs Vitals: Temp Pulse Resp BP Pulse Ox 99.0 F 98 14 123/79 99 06/11/18 13:38 06/11/18 13:38 06/11/18 13:38 06/11/18 13:38 06/11/18 13:38 Interpretation: Normal - General General appearance: Appears well, Alert - HEENT Head: Normocephalic, Atraumatic Eyes: Normal Pupils: PERRL Ears: Normal External canal: Normal Tympanic membrane: Normal Sinus: Normal Nasal: Purulent discharge, Swelling Mouth/Lips: Normal Mucous membranes: Normal Pharynx: Post nasal drainage Neck: Normal - Respiratory Respiratory status: No respiratory distress Chest status: Nontender Breath sounds: Nonproductive cough. No: Productive cough, Rales, Rhonchi, Stridor, Wheezing Chest palpation: Normal - Cardiovascular Rhythm: Regular Heart sounds: Normal auscultation Murmur: No - Abdominal Inspection: Normal Distension: No distension Bowel sounds: Normal Tenderness: Nontender Organomegaly: No organomegaly - Back Back: Normal, Tender, Vertebra tenderness - Lumbar area and radiates across the left buttocks and down the left leg, Other - No swollen lymph nodes in the back noted - Extremities General upper extremity: Normal inspection, Nontender, Normal color, Normal ROM, Normal temperature General lower extremity: Normal inspection, Nontender, Normal color, Normal ROM, Normal temperature, Normal weight bearing. No: Emmanuel's sign - Neurological Neuro grossly intact: Yes Cognition: Normal Orientation: AAOx4 Son Coma Scale Eye Opening: Spontaneous [place] Coma Scale Verbal: Oriented [place] Coma Scale Motor: Obeys Commands Son Coma Scale Total: 15 Speech: Normal Motor strength normal: LUE, RUE, LLE, RLE Sensory: Normal - Psychological Associated symptoms: Normal affect, Normal mood - Skin Skin Temperature: Warm Skin Moisture: Dry Skin Color: Normal Course - Re-evaluation Re-evalutation: 06/11/18 15:33 Patient assessment consistent with upper respiratory infection with a cough runny nose congestion no wheezing. Patient did not require a chest x-ray as there lungs were clear to auscultation. Patient was taken full deep breaths respirations regular speaking freely with no shortness of breath. She also had lumbar pain sciatica which she has had for a long time. She said this is an acute exacerbation of her chronic pain. After performing a Medical Screening Examination, I estimate there is LOW risk for ACUTE CORONARY SYNDROME, RESPIRATORY FAILURE, SEPSIS OR MENINGITIS, thus I consider the discharge disposition reasonable. I have reevaluated this patient multiple times and no significant life threatening changes are noted. The patient and I have discussed the diagnosis and risks, and we agree with discharging home with close follow- up. We also discussed returning to the Emergency Department immediately if new or worsening symptoms occur. We have discussed the symptoms which are most concerning (e.g., changing or worsening pain, trouble swallowing or breathing, neck stiffness, fever) that necessitate immediate return., After performing a Medical Screening Examination, I estimate there is LOW risk for EXPANDING OR RUPTURED ABDOMINAL AORTIC ANEURYSM, CAUDA EQUINA SYNDROME, EPIDURAL MASS LESION, or HERNIATED DISK CAUSING SEVERE SPINAL STENOSIS, thus I consider the discharge disposition reasonable. I have reevaluated this patient multiple times and no significant life threatening changes are noted. The patient and I have discussed the diagnosis and risks, and we agree with discharging home and close follow-up. We also discussed returning to the Emergency Department immediately if new or worsening symptoms occur with the understanding that symptoms and presentations can change. We have discussed the symptoms which are most concerning (e.g., saddle anesthesia, urinary or bowel incontinence or retention, changing or worsening pain) that necessitate immediate return. - Vital Signs Vital signs: Temp Pulse Resp BP Pulse Ox 99.0 F 98 14 123/79 99 06/11/18 13:38 06/11/18 13:38 06/11/18 13:38 06/11/18 13:38 06/11/18 13:38 Discharge - Discharge Clinical Impression: URI (upper respiratory infection) Qualifiers: URI type: unspecified URI Qualified Code(s): J06.9 - Acute upper respiratory infection, unspecified Low back pain Qualifiers: Chronicity: unspecified Back pain laterality: left Sciatica presence: with sciatica Sciatica laterality: sciatica of left side Qualified Code(s): M54.42 - Lumbago with sciatica, left side Condition: Stable Disposition: HOME, SELF-CARE Instructions: Family Physicians / Practices Additional Instructions: LOW BACK PAIN: Three out of every four people will have an episode of disabling back pain during their lifetime. Most commonly the pain is due to straining of the mu scles and ligaments in the low back. Usual treatment includes: (1) Rest on a firm surface. Avoid lying on your stomach. (2) Ice pack the painful area. After a few days, gentle heat may be used intermittently to relax the area, or ice packs can be continued. (3) Medication may be needed -- muscle relaxers and antiinflammatory medicines are commonly used. (4) As the back improves, exercises are prescribed to strengthen the back and abdominal muscles. Your doctor will advise you on the proper care for your back at each stage in your recovery. You may be better in a few days -- or healing may take several weeks. If new symptoms of a "herniated disc" (radiation of pain, numbness, or tingling down the back of the leg or weakness in the leg) occur, you should be re-examined. Further testing may be necessary. Sciatica Your symptoms suggest "sciatica." The pain of sciatica typically radiates down the leg. Numbness in the foot or calf may also occur. Sciatica is caused by irritation of the sciatic nerve or its branches. The irritation can be due to a herniated disk in the spine, swelling and inflammation in the muscles surrounding the sciatic nerve, or direct injury of the nerve itself. Most cases of sciatica will resolve with medical treatment. Bed rest is usually recommended initially. Surgery is only necessary when the condition ayanna l not improve with rest and antiinflammatory medication. Muscle relaxers are often given if muscle soreness is present. A CAT scan of the back may be performed if a herniated disk is suspected. Re-examination is necessary if you develop increasing numbness, localized weakness in the foot or ankle, or if the pain does not respond to rest. UPPER RESPIRATORY ILLNESS: You have a viral infection of the respiratory passages -- a "cold." This common infection causes nasal congestion, drainage, and often sore throat and cough. It is highly contagious. The disease usually lasts about 10 to 14 days. There is no "cure" for the viral infection -- it must run its course. If there is a complication, such as bacterial infection in the nose, sinuses, middle ear, or bronchial tubes, antibiotics may be required. The antibiotics won't affect the virus. Drink plenty of fluids. A humidifier may help. An expectorant medication or decongestant may make you more comfortable. Use acetaminophen or ibuprofen for fever or aches. See the doctor if fever persists over two days, if there is any significant worsening of your symptoms, or if you simply fail to improve as expected. COUGH-SUPPRESSANT & EXPECTORANT MEDICATION: You are to use a cough medication as needed for relief of symptoms. This medicine is a combination of an expectorant (to make the mucous thinner and more easily "coughed up") and a cough suppressant (to reduce the frequency of coughing). The cough-suppressant medicine is related to narcotics. You may experience mild nausea and sleepiness. Some patients who are very sensitive to narcotics may have stomach pain from this medicine. Taking the medicine with food reduces these side effects. Do not drive or work with machinery until you know how this medicine affects you. The expectorant should have no side effects. Iodine-containing expectorants (such as organidin) should not be taken by persons with active th yroid disease unless approved by your doctor. Call the doctor if you develop shortness of breath, hives, rash, itching, lightheadedness, or severe nausea and vomiting. STEROID MEDICATION: You have been given an injection of or oral medicine of the cortisone/steroid class. This medication is used to control inflammation or allergy. Jean-Claude t is usually only given for a short period of time, until the acute process subsides. There are usually no side effects from short-term use of cortisone-like medications. Some persons feel an increased sense of well-being and are not sleepy at bedtime. Long-term use of cortisone medications is best avoided, unless required for a severe condition. If your condition does not remit, or relapses after the course of corticosteroid medication, you should consult your physician. Ibuprofen Ibuprofen is an excellent, safe drug for pain control. In addition, it has potent antiinflammatory effects which are beneficial, especially in the treatment of injuries, arthritis, or tendonitis. It's best to take ibuprofen with food. Persons with ulcer disease or allergy to aspirin should notify their physician of this before taking ibuprofen. Take the medication exactly as prescribed. Don't take additional doses unless instructed to do so by your doctor. If you develop wheezing, shortness of breath, hives, faintness, stomach pain, vomiting, or dark black stools, return for re-evaluation at once. USE OF ACETAMINOPHEN (Tylenol): Acetaminophen may be taken for pain relief or fever control. It's much sa fredy than aspirin, offering a wider range of "safe" dosages. It is safe during . Some brand names are Tylenol, Panadol, Datril, Anacin 3, Tempra, and Liquiprin. Acetaminophen can be repeated every four hours. The following are maximum recommended dosages: >89 pounds or adults 650 mg to 900 mg Acetaminophen can be repeated every four hours. Maximum dose not to exceed 4000 mg a day. SMOKING: If you smoke, you should stop smoking. The tar and chemicals in cigarette smoke are harmful. Smoking has been shown to cause: emphysema chronic bronchitis lung cancer mouth and throat cancer stomach and pancreas cancer premature aging defects In addition, smoking increases ear and lung infections in children of smokers. ICE PACKS: Apply ice packs frequently against the painful area. Many different schedules are recommended, such as "20 minutes on, 20 minutes off" or "one hour ice, two hours rest." If you need to work, you may need to go longer between ice treatments. You should plan to have the area ice packed AT LEAST one fourth of the time. The ice should be applied over the wrap, tape, or splint, or over a layer of cloth -- not directly against the skin. Some ice bags have a built-in cloth and can be put directly on the skin. WARM PACKS: After approximately two days, apply gentle heat (such as a heating pad or hot water bottle) for about 20 to 30 minutes about every two hours -- at least four times daily. Warmth and elevation will help you make a more rapid recovery, and will ease the pain considerably. Do not use HOT heat, and never apply heat for longer than 30 minutes. The continuous heat can invisibly damage skin and muscles -- even when no burn is seen on the surface. Damaged muscles can make you MORE sore. Stretching Exercises for the Back The physician has recommended that you begin stretching exercises for your back. These are often used even while the back is painful. However, you should notify the physician if the activities seem to increase your pain. PELVIC TILT: Lie flat on your back with knees bent. Tighten your stomach and buttock muscles so it flattens your lower back against the floor. Hold 10 seconds. Repeat 10 times, twice daily. KNEE RAISE: Lying on the back with knees bent, raise one knee to your chest, then the other. Hold both knees against the chest 10 seconds, then lower one knee at a time. Repeat 10 times, twice daily. PARTIAL TRUNK RAISE: Lie face down, arms at your sides. Keeping your waist on the floor, use your arms raise your chest up. Support yourself on your elbows for 30 seconds. Repeat twice daily, increasing the time to two minutes as you recover. You were treated today with Claritin 10 mg, Sudafed 30 mg, Mucinex 600 mg, ibuprofen 600 mg, for your cough cold and congestion. You were treated with Decadron 10 mg by mouth and a Lidoderm patch for your low back pain with sciatica. The Lidoderm patch that I put on you in the ED is prescription strength but you can buy a Lidoderm patch [id number]. The Sudafed Mucinex and Claritin are all plqu-xee-uobarux. You can also get ibuprofen 200 mg that she just need to take 3 of [id number]. Another medicine that will help your cough and cold his Flonase. Use it according to the box instructions. You can also use Chloraseptic spray for your sore throat. This is [id number]. Salt and soda solution gargles will help to remove the drainage from your back your throat which will help to reduce your cough. Salt and soda solution 1 quart of water 1 tablespoon of salt 1 teaspoon of baking soda Mixed 3 ingredients together and boil for 1 minute Placed in a covered quart jar Use 1/2 ounce of cold solution to gargle 3 times a day FOLLOW-UP CARE: If you have been referred to a physician for follow-up care, call the physicians office for an appointment as you were instructed or within the next two days. If you experience worsening or a significant change in your symptoms, notify the physician immediately or return to the Emergency Department at any time for re-evaluation. Prescriptions: Benzonatate [Tessalon Perle 100 mg Capsule] 100 mg PO Q8HP PRN #14 cap PRN Reason: Ibuprofen [Motrin 600 mg Tablet] 600 mg PO Q8HP PRN #20 tablet PRN Reason: Forms: Smoking Cessation Education
== END 2018-06-11 15:42 | disposition home or self-care (01) ==
LOC: ER 13:09
DX: J06.9 Acute upper respiratory infection, unspecified (principal); G89.29 Other chronic pain; M54.42 Lumbago with sciatica, left side; R05 Cough; R09.89 Other specified symptoms and signs involving the circulatory and respiratory systems; R68.83 Chills (without fever); R09.82 Postnasal drip; R51 Headache; J34.89 Other specified disorders of nose and nasal sinuses; J02.9 Acute pharyngitis, unspecified; R09.81 Nasal congestion; R06.02 Shortness of breath; J45.909 Unspecified asthma, uncomplicated; F17.210 Nicotine dependence, cigarettes, uncomplicated; Z71.6 Tobacco abuse counseling; Z88.5 Allergy status to narcotic agent; Z88.6 Allergy status to analgesic agent; Z91.040 Latex allergy status; Z88.8 Allergy status to other drugs, medicaments and biological substances; Z91.041 Radiographic dye allergy status; Z91.013 Allergy to seafood; Z87.01 Personal history of pneumonia (recurrent)
CPT/HCPCS: 99283; 99406

== ENCOUNTER 2018-06-18 16:37 | Emergency (ER) | payer SELFPAY ==
[2018-06-18] MEDS ORDERED: IPRATROPIUM/ALBUTEROL 0.5-2.5 MG/3 ML AMPUL NEB ONE ×2 (17:52→19:56)
--- NOTE | 2018-06-18 17:56 | ER Document Report ---
ED General - General Chief Complaint: Breathing Difficulty Stated Complaint: DIFFICULTY BREATHING Time Seen by Provider: 06/18/18 17:45 Notes: Patient is a 28-year-old female who presents to the emergency department with a chief complaint of a cough. She states that she has had her cough for the past 9 days. She was seen in the emergency department for his her symptoms and was sent home with Michelle More she states that her symptoms are not any better. She states that and night she coughs more than she does during the day. She states that she has had fevers on and off. She has a history of pneumonia and asthma. She does have a nebulizer at home, but not has used it. She has been using her inhaler for her symptoms, with no relief. TRAVEL OUTSIDE OF THE [place] IN LAST 30 DAYS: No - Related Data Allergies/Adverse Reactions: morphine [Morphine] Allergy (Intermediate, Verified 06/11/18 13:19) severe vomiting aspirin [Aspirin] Allergy (Mild, Verified 06/11/18 13:19) severe headaches latex [Latex] Allergy (Unknown, Verified 06/11/18 13:19) Nausea promethazine HCl [From Phenergan] Allergy (Unknown, Verified 06/11/18 13:19) Iodinated Contrast- Oral and IV Dye [IV Dye, Iodine Containing] Allergy (Verified 06/11/18 13:19) Shellfish * [Shellfish] Allergy (Verified 06/11/18 13:19) Past Medical History - Social History Smoking Status: Unknown if Ever Smoked Family History: Arthritis, DM, Hypertension, Malignancy, Thyroid Disfunction - Past Medical History Cardiac Medical History: Denies: Hx Atrial Fibrillation Pulmonary Medical History: Reports: Hx Asthma - ON ALBUTEROL, Hx Bronchitis, Hx COPD, Hx Pneumonia Neurological Medical History: Reports: Hx Migraine Renal/ Medical History: Reports: Hx Ovarian Cysts. Denies: Hx Peritoneal Di alysis GI Medical History: Reports: Hx Gastroesophageal Reflux Disease, Hx Hiatal Hernia, Hx Ulcer Musculoskeletal Medical History: Reports Hx Arthritis, Reports Hx Musculoskeletal Deformity, Reports Hx Musculoskeletal Trauma Psychiatric Medical History: Reports: Hx Anxiety, Hx Depression, Hx Post Traumatic Stress Disorder - Clavicle ankle ribs Traumatic Medical History: Reports: Hx Fractures Past Surgical History: Reports: Hx Section - 3, Hx Hysterectomy, Hx Or al Surgery - wisdom teeth molars, Hx Orthopedic Surgery - L shoulder, Hx Tubal Ligation - Immunizations Immunizations up to date: Yes Hx Diphtheria, Pertussis, Tetanus Vaccination: Yes Hx Pneumococcal Vaccination: 06/08/00 Review of Systems - Review of Systems Notes: REVIEW OF SYSTEMS: CONSTITUTIONAL : Denies recent illness. Denies recent unintentional weight loss. See HPI EENT: See HPI CARDIOVASCULAR: Denies chest pain. RESPIRATORY: See HPI GASTROINTESTINAL: Denies nausea, vomiting, and diarrhea. Denies abdominal pain. Denies constipation. GENITOURINARY: Denies difficulty urinating, burning, blood in urine, urgency or frequency. MUSCULOSKELETAL: Denies neck and back pain. Denies joint pain or swelling. SKIN: Denies rash, itchiness, or lesions HEMATOLOGIC : Denies easy bruising or bleeding. LYMPHATIC: Denies swollen, painful, enlarged glands. NEUROLOGICAL: Denies no numbness or tingling denies weakness. Denies headache. Denies altered mental status. Denies alteration in speech. PSYCHIATRIC: Denies stress, anxiety, alteration in sleep patterns, or depression. All other systems reviewed and negative. Physical Exam - Vital signs Vitals: Temp Pulse Resp BP Pulse Ox 98.5 F 88 16 120/75 100 06/18/18 16:47 06/18/18 16:47 06/18/18 16:47 06/18/18 16:47 06/18/18 16:47 - Notes Notes: PHYSICAL EXAMINATION: GENERAL: Appears well, healthy, well-nourished, no acute distress. HEAD: Normocephalic, atraumatic. EYES: PERRL, conjunctiva normal, all extraocular movements intact, sclera nonicteric ENT: Moist mucous membranes. NECK: Supple, no noticeable swelling, redness, rash. Normal range of motion. LUNGS: Inspiratory and expiratory wheezes noted throughout. Equal chest rise and fall. CARDIOVASCULAR: S1-S2, regular rate, regular rhythm. Radial pulses 2+, normal. ABDOMEN: Normoactive bowel sounds. Soft, nontender, no guarding, no rebound tenderness, and no masses palpated. EXTREMITIES: Normal strength and range of motion, no pitting or edema. No cyanosis. NEUROLOGICAL: Moves all extremities upon command. Strength 5/5 in all extremities. PSYCH: Normal mood, normal affect. SKIN: Warm, dry. No rash, lesions, ulcerations noted. Normal skin turgor. Course - Re-evaluation Re-evalutation: 06/18/18 19:56 Patient just finished her first DuoNeb treatment. She still has expiratory wheezes bilaterally. She will be given another DuoNeb treatment to help with her symptoms. The patient's chest x-ray is negative. She does not have pneumonia. 06/18/18 20:45 Patient's breath sounds are now clear. She will be sent home with a 5-day course of prednisone since she has asthma. She has a nebulizer treatment at home and she use her nebulizer as needed. Discharge instructions for cetirizine were discussed. We discussed her plan of care as per her discharge instructions. Verbal discharge instructions were given to the patient. They verbalized understanding. They are stable for discharge. Documentation was completed using voice recognition software, therefore there may be some unintended grammatical or punctual errors. - Vital Signs Vital signs: Temp Pulse Resp BP Pulse Ox 98.5 F 105 H 17 127/68 H 99 06/18/18 16:47 06/18/18 21:09 06/18/18 21:09 06/18/18 21:09 06/18/18 21:09 Discharge - Discharge Clinical Impression: Cough Asthma exacerbation Qualifiers: Asthma severity: mild Asthma persistence: intermittent Qualified Code(s): J45.21 - Mild intermittent asthma with (acute) exacerbation Condition: Stable Disposition: HOME, SELF-CARE Additional Instructions: You were seen today in the emergency department for a cough. Your chest x-ray is normal. You have bronchitis. You can continue taking Motrin and Tylenol as needed for the pain. Please continue to take your Claritin. You can take kpea-[id number] Delsym for your cough. You have been given Zofran for any nausea, you may take 1 tablet every 6 hours as needed for nausea. If you diffic ulty breathing, you can try a nebulizer treatment at home to help with your symptoms. You have also been prescribed prednisone, steroid to help with your symptoms. If you develop a fever greater than 100.4 F while on Motrin and Tylenol, are unable to breathe, or have shortness of breath, please return to the emergency department. Prescriptions: Prednisone [Deltasone 20 mg Tablet] 3 tab PO DAILY 5 Days tablet
--- NOTE | 2018-06-18 18:21 | RADIOLOGY REPORT (SQ) ---
EXAM DESCRIPTION: CHEST 2 VIEWS COMPLETED DATE/TIME: 06/18/2018 6:08 pm REASON FOR STUDY: cough x 9 days COMPARISON: 03/12/2017 EXAM PARAMETERS: NUMBER OF VIEWS: two views TECHNIQUE: Digital Frontal and Lateral radiographic views of the chest acquired. RADIATION DOSE: NA LIMITATIONS: none FINDINGS: LUNGS AND PLEURA: No opacities, masses or pneumothorax. No pleural effusion. MEDIASTINUM AND HILAR STRUCTURES: No masses or contour abnormalities. HEART AND VASCULAR STRUCTURES: Heart normal size. No evidence for failure. BONES: No acute findings. HARDWARE: None in the chest. OTHER: No other significant finding. IMPRESSION: NO ACUTE RADIOGRAPHIC FINDING IN THE CHEST. TECHNICAL DOCUMENTATION: JOB ID: [id number] [employer]- All Rights Reserved Reading location - IP/workstation name: [email or web address]
[2018-06-18] MEDS ORDERED: ONDANSETRON ODT 4 MG TAB (6 TAB/ER DISP) PO PRN (20:47)
[2018-06-18] MEDS ORDERED: PREDNISONE 20 MG TABLET PO ONE ×2 (20:51→20:53)
[2018-06-18 21:10] VITALS: BP 127/68
== END 2018-06-18 21:15 | disposition home or self-care (01) ==
LOC: ER 16:37
DX: J45.21 Mild intermittent asthma with (acute) exacerbation (principal); Z88.6 Allergy status to analgesic agent; Z91.040 Latex allergy status; Z91.013 Allergy to seafood; Z90.710 Acquired absence of both cervix and uterus
CPT/HCPCS: 94640 ×2; 99285; 71046; J7512; J7620

== ENCOUNTER 2018-07-23 15:46 | Emergency (ER) | payer SELFPAY ==
[2018-07-23 16:17] VITALS: BP 133/79
[2018-07-23] MEDS ORDERED: KETOROLAC TROMETHAMINE 60 MG/2 ML SDV IM ONE (17:40)
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
== END 2018-07-23 17:57 | disposition home or self-care (01) ==
LOC: ER 15:46
DX: G89.29 Other chronic pain (principal); M54.5 Low back pain; V49.9XXS Car occupant (driver) (passenger) injured in unspecified traffic accident, sequela; F17.210 Nicotine dependence, cigarettes, uncomplicated; R20.0 Anesthesia of skin; J45.909 Unspecified asthma, uncomplicated
CPT/HCPCS: 99283; 96372; J1885

== ENCOUNTER 2019-04-14 02:58 | Emergency (ER) | payer SELFPAY ==
[2019-04-14] MEDS ORDERED: RACEPINEPHRINE HCL 2.25% NEB 0.5 ML AMPUL NEB ONE (03:10)
[2019-04-14] MEDS ORDERED: NORMAL SALINE 1000 ML 1,000 ML IV ONE ×2 (03:18→03:19)
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
[2019-04-14 03:35] LABS: ABSOLUTE BASOPHILS # (AUTO) 0.1 10^3/uL (0.0-0.2); ABSOLUTE EOSINOPHILS # (AUTO) 0.3 10^3/uL (0.0-0.6); ABSOLUTE MONOCYTES (AUTO) 0.9 10^3/uL (0.1-1.4); ABSOLUTE NEUT (AUTO) 4.3 10^3/uL (1.7-8.2); BASOPHILS % (AUTO) 0.7 % (0-2); EOSINOPHILS % (AUTO) 2.7 % (0-6); HEMATOCRIT 40.4 % (36.0-47.0); HEMOGLOBIN 13.9 g/dL (12.0-15.5); LYMPHOCYTES % (AUTO) 47.5 % (13-45); MEAN CORPUSCULAR HEMOGLOBIN 30.2 pg (27.0-33.4); MEAN CORPUSCULAR HGB CONC 34.4 g/dL (32.0-36.0); MEAN CORPUSCULAR VOLUME 88 fl (80-97); MONOCYTES % (AUTO) 8.2 % (3-13); PLATELET COUNT 360 10^3/uL (150-450); RED CELL DISTRIBUTION WIDTH 13.4 % (11.5-14.0); SEGMENTED NEUTROPHILS % (AUTO) 40.9 % (42-78); TOTAL CELLS COUNTED % (AUTO) 100 %; WHITE BLOOD COUNT 10.4 10^3/uL (4.0-10.5)
--- NOTE | 2019-04-14 03:39 | RADIOLOGY REPORT (SQ) ---
EXAM DESCRIPTION: XR CHEST 1 VIEW COMPLETED DATE/TME: 04/14/2019 00:00 CLINICAL HISTORY: 29 years, Female, ANXIETY, DIFF BREATHING COMPARISON: 06/18/2018 NUMBER OF VIEWS: One TECHNIQUE: AP view of the chest LIMITATIONS: None. FINDINGS: The lungs are clear. The heart is normal in size. There is no pneumothorax or pleural effusion. The bones are unremarkable. IMPRESSION: No acute cardiopulmonary abnormality copyright 2010 [employer]- All Rights Reserved
[2019-04-14 03:51] LABS: ALBUMIN 4.9 g/dL (3.5-5.0); ALCOHOL 151 mg/dL (NONE DETECTED); ALKALINE PHOSPHATASE 49 U/L (38-126); ANION GAP 14 (5-19); ASPARTATE AMINO TRANSFERASE 21 U/L (14-36); BILIRUBIN,DIRECT 0.1 mg/dL (0.0-0.4); BILIRUBIN,TOTAL 0.4 mg/dL (0.2-1.3); BLOOD UREA NITROGEN 9 mg/dL (7-20); CALCIUM 9.9 mg/dL (8.4-10.2); CARBON DIOXIDE 22 mmol/L (22-30); CHLORIDE 108 mmol/L (98-107); GLUCOSE 112 mg/dL (75-110); POTASSIUM 3.1 mmol/L (3.6-5.0); TOTAL PROTEIN 7.9 g/dL (6.3-8.2)
[2019-04-14 03:52] LABS: ACETAMINOPHEN < 10 ug/mL (10-30); SALICYLATE < 1.0 mg/dL (2.0-20.0)
[2019-04-14] MEDS ORDERED: ACETAMINOPHEN 325 MG TABLET PO ONE (04:21)
[2019-04-14 04:35] LABS: APPEARANCE,URINE CLEAR; BILIRUBIN,URINE NEGATIVE (NEGATIVE); COLOR,URINE COLORLESS; GLUCOSE, URINE NEGATIVE (NEGATIVE); KETONES,URINE NEGATIVE (NEGATIVE); LEUKOCYTE ESTERASE,URINE NEGATIVE (NEGATIVE); NITRITE,URINE NEGATIVE (NEGATIVE); PROTEIN,URINE NEGATIVE (NEGATIVE); URINE SPECIFIC GRAVITY 1.002; UROBILINOGEN,URINE NEGATIVE mg/dL (<2.0)
[2019-04-14 04:48] LABS: URINE AMPHETAMINES SCREEN NEGATIVE; URINE BARBITURATES SCREEN NEGATIVE; URINE BENZODIAZEPINES SCREEN NEGATIVE; URINE COCAINE SCREEN NEGATIVE; URINE MARIJUANA (THC) SCREEN NEGATIVE; URINE METHADONE SCREEN NEGATIVE; URINE PHENCYCLIDINE SCREEN NEGATIVE
--- NOTE | 2019-04-14 05:19 | RADIOLOGY REPORT (SQ) ---
EXAM DESCRIPTION: XR KNEE 4 OR MORE VIEWS COMPLETED DATE/TME: 04/14/2019 00:00 CLINICAL HISTORY: 29 years Female, pain s/p fall COMPARISON:Dec 23 2017 Findings: Bones, joints, and soft tissues of the LEFT XR KNEE 4 VIEWS appear intact. IMPRESSION: No acute findings.
[2019-04-14] MEDS ORDERED: POTASSIUM CHLORIDE 10 MEQ CAPSULE.ER PO ONE (05:34)
[2019-04-14] MEDS ORDERED: POTASSI CL 20 MEQ/50 ML RIDER 20 MEQ/50 ML RTUPB IV ONE (05:49)
[2019-04-14] MEDS ORDERED: METHYLPREDNISOLONE INJ 125 MG/2 ML SDV IV ONE (05:50)
[2019-04-14] MEDS ORDERED: HYDROCODONE/ACETAMINOPHEN 5-325 MG TABLET PO ONE (05:51)
[2019-04-14] MEDS ORDERED: FENTANYL CITRATE INJ/PF 100 MCG/2 ML AMPUL IV STA (06:56)
--- NOTE | 2019-04-14 07:14 | RADIOLOGY REPORT (SQ) ---
CT abdomen and pelvis without contrast on 04/14/2019 at 6:20 AM CLINICAL INDICATION: Fell and landed on buttocks, low back pain, bilateral hip pain TECHNIQUE: Multiple axial images are obtained throughout the abdomen and pelvis without the administration of contrast. This exam was performed according to our departmental dose-optimization program, which includes automated exposure control, adjustment of the mA and/or kV according to patient size and/or use of iterative reconstruction technique. Total DLP is 299.31 mGy*cm. COMPARISON: 08/13/2017 FINDINGS: Abdomen: There is a stable 4 mm noncalcified nodule in the left lower lobe on image eight. Patient is outside the age range for Fleischner Society criteria but due to the stability and its size no follow-up is recommended. The lung bases are otherwise clear. There are no renal or ureteral stones and no hydronephrosis. The unenhanced solid abdominal organs are unremarkable. There is no abdominal adenopathy. There is no free fluid or free air within the abdomen. The abdominal portion of the GI tract is unremarkable. Pelvis: There is no free fluid in the pelvis. There is no pelvic adenopathy. The pelvic portion of the GI tract including the appendix is unremarkable. No acute bony abnormality is noted. IMPRESSION: Essentially unremarkable unenhanced exam.
[2019-04-14] MEDS ORDERED: ONDANSETRON HCL INJ/PF 4 MG/2 ML SDV IV ONE ×2 (07:57→17:00)
--- NOTE | 2019-04-14 10:08 | RADIOLOGY REPORT (SQ) ---
EXAM DESCRIPTION: MRI LUMBAR SPINE WITHOUT COMPLETED DATE/TIME: 04/14/2019 9:46 am REASON FOR STUDY: pain and paresthesias COMPARISON: 2012 TECHNIQUE: Sagittal and Axial imaging includes T1, T2, STIR and gradient echo sequences. Coronal T2/ HASTE imaging. LIMITATIONS: Motion. FINDINGS: VISUALIZED UPPER ABDOMEN: Limited evaluation. No acute or suspicious findings suggested. SEGMENTATION: Transitional vertebra. 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 ALIGNMENT: Anatomic. VERTEBRAE: Intact. BONE MARROW: Normal. No marrow replacement or reactive changes. DISC SIGNAL: Normal. No significant abnormal signal or loss of height. POSTERIOR ELEMENTS: Generally intact. No pars defect evident. HARDWARE: None in the spine. CORD AND CONUS: Normal in size and signal intensity. Conus at the appropriate level. SOFT TISSUES: No aortic aneurysm seen. No bulky retroperitoneal adenopathy or mass. No paraspinal mas s or fluid. L1-L2: No significant spinal stenosis or exit foraminal stenosis. L2-L3: No significant spinal stenosis or exit foraminal stenosis. L3-L4: Facet arthropathy. No significant stenosis. L4-L5: Facet arthropathy. No significant stenosis. L5-S1: Facet arthropathy. No significant stenosis. LOWER THORACIC: Incompletely imaged. No stenosis seen. SACRUM: Visualized upper sacrum intact. OTHER: No other significant findings. IMPRESSION: Facet arthropathy. No significant stenosis. 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 TECHNICAL DOCUMENTATION: JOB ID: [id number]- All Rights Reserved Reading location - IP/workstation name: [email or web address]
--- NOTE | 2019-04-14 11:52 | ER Document Report ---
Doctor's Note Notes: 04/14/19 06:50 I assumed care of this patient from Dr. Nash att end of his shift pending MRI of the lumbar spine, CT abdomen pelvis and disposition. Please see his note for full history of physical. Briefly, this is a 29-year-old female who presents with a complaint of left lower extremity paresthesias, pain in her lower back after a fall today. Patient states that she is unable to feel her left leg 1026 Pt re-evaluated. Complains of back pain. Still can't feel her leg 1130 Labs and imaging reviewed. MRI discussed. Given here persistent neuro symptoms, she needs to be admitted. Will transfer her to [facility] since we do not have neuro available here. 04/14/19 13:01 She is care discussed with Dr. Blankenship, hospitalist at [facility]. He accepted the patient in transfer. Patient remained stable for transfer. Discharge - Discharge Clinical Impression: Shortness of breath, Paresthesia Back contusion Qualifiers: Encounter type: initial encounter Laterality: unspecified laterality Qualified Code(s): S20.229A - Contusion of unspecified back wall of thorax, initial encounter Condition: Good Disposition: [facility] Instructions: Anxiety ([facility])
[2019-04-14] MEDS ORDERED: KETOROLAC TROMETHAMINE INJ/PF 30 MG/1 ML SDV IV ONE (17:00)
--- NOTE | 2019-04-14 22:47 | EKG REPORT ---
SEVERITY:- ABNORMAL ECG - SINUS TACHYCARDIA LEFT ATRIAL ABNORMALITY BORDERLINE RIGHT AXIS DEVIATION : Confirmed by: Jay Chavez 14-Apr-2019 22:47:15
[2019-04-15 02:18] VITALS: BP 104/66
== END 2019-04-15 02:51 | disposition short-term general hospital (02) ==
LOC: ER 02:58
DX: S20.229A Contusion of unspecified back wall of thorax, initial encounter (principal); M25.552 Pain in left hip; M54.5 Low back pain; W19.XXXA Unspecified fall, initial encounter; Y93.41 Activity, dancing; R53.1 Weakness; R20.0 Anesthesia of skin; M54.9 Dorsalgia, unspecified; G89.29 Other chronic pain; J44.9 Chronic obstructive pulmonary disease, unspecified; R06.02 Shortness of breath; F17.200 Nicotine dependence, unspecified, uncomplicated; Z79.899 Other long term (current) drug therapy; Z88.5 Allergy status to narcotic agent; Z88.8 Allergy status to other drugs, medicaments and biological substances; Z91.040 Latex allergy status; Z91.041 Radiographic dye allergy status; Z91.013 Allergy to seafood
CPT/HCPCS: 96376; 94640; 99285; 96361; 96375; 96365; 96366; 36415; 87040; 82962; 80307 ×4; 85025; 80053; 81001; 83605; 72148; 71045; 73564; 74176; 93005; 93010; J3010; J2930; J1885; J2405; J3480; J7030; J3490